=== PATIENT | female | born 1935 | race Caucasian/White ===

== ENCOUNTER → 2021-04-27 16:48 | Outpatient (CLI) | payer MEDICARE, MEDICAID, SELFPAY ==
[2021-04-27 17:54] LABS: Basophils # 0.1 K/mm3 (0-0.2); Basophils % 0.6 % (0.1-2.0); Eosinophils # 0.3 K/mm3 (0.0-0.4); Eosinophils % 2.6 % (0.1-12.0); Hematocrit 43.2 % (37.0-47.0); Hemoglobin 14.2 g/dL (12.2-16.2); Lymphocytes % 39.4 % (10-50); Mean Corpuscular HGB Conc 32.8 g/dL (31.8-35.4); Mean Corpuscular Hemoglobin 29.8 pg (27.0-31.2); Mean Corpuscular Volume 90.8 fl (81-99); Monocytes # 0.6 K/mm3 (0.1-1.0); Monocytes % 6.3 % (1.7-9.3); Neutrophils # 5.1 K/mm3 (1.8-7.8); Neutrophils % 51.1 % (37.0-80.0); Platelet Count 240 K/mm3 (142-424); Red Blood Count 4.75 M/mm3 (4.20-5.40); Red Cell Distribution Width 14.5 % (11.5-17.5)
[2021-04-27 18:07] LABS: Chloride 107 mmol/L (98-107); Sodium 147 mmol/L (136-145)
[2021-04-27 18:08] LABS: Potassium 4.7 mmoL/L (3.5-5.1)
[2021-04-27 18:10] LABS: Alanine Aminotransferase 20 U/L (12-78); Albumin Level 3.4 g/dl (3.5-5.0); Albumin/Globulin Ratio 1.2 (1.1-1.8); Alkaline Phosphatase 103 U/L (38-126); Anion Gap 10.7 mEq/L (5-15); Aspartate Amino Transferase 25 U/L (14-36); Bilirubin,Total 0.3 mg/dl (0.2-1.3); Blood Urea Nitrogen 23 mg/dl (7-17); Carbon Dioxide 34 mmol/L (22.0-30.0); Estimated Glomerular Filt Rate 47 ml/min (>60); GFR (African American) 57 ML/MIN (>60); Globulin 2.9 g/dL (1.3-3.2); Total Protein,Serum 6.3 g/dl (6.3-8.2)
[2021-04-27 18:11] LABS: Calcium 8.9 mg/dl (8.4-10.2); Glucose 96 mg/dl (74-100)
== END ==
LOC: LAB.DROPOF 16:51 → HMH.JM 04-28 12:42
PROVIDERS: Visit Provider Nurse Practitioner Family
DX: E87.0 Hyperosmolality and hypernatremia (principal)
CPT/HCPCS: 80053; 85025

== ENCOUNTER → 2021-06-22 08:09 | Outpatient (CLI) | payer MEDICARE, MEDICAID, SELFPAY ==
[2021-06-22 10:12] LABS: Basophils # 0.1 K/mm3 (0-0.2); Basophils % 0.7 % (0.1-2.0); Eosinophils # 0.2 K/mm3 (0.0-0.4); Eosinophils % 1.8 % (0.1-12.0); Hematocrit 43.2 % (37.0-47.0); Lymphocytes # 3.7 K/mm3 (0.7-4.5); Lymphocytes % 33.3 % (10-50); Mean Corpuscular HGB Conc 30.2 g/dL (31.8-35.4); Mean Corpuscular Hemoglobin 29.8 pg (27.0-31.2); Mean Corpuscular Volume 98.9 fl (81-99); Mean Platelet Volume 10.1 fl (7.4-10.4); Monocytes # 0.8 K/mm3 (0.1-1.0); Monocytes % 7.3 % (1.7-9.3); Neutrophils # 6.3 K/mm3 (1.8-7.8); Platelet Count 281 K/mm3 (142-424); Red Blood Count 4.37 M/mm3 (4.20-5.40); Red Cell Distribution Width 13.9 % (11.5-17.5)
[2021-06-22 12:30] LABS: Alanine Aminotransferase 22 U/L (12-78); Alkaline Phosphatase 95 U/L (38-126); Anion Gap 13.1 mEq/L (5-15); Aspartate Amino Transferase 35 U/L (14-36); Bilirubin,Total 0.4 mg/dl (0.2-1.3); Blood Urea Nitrogen 21 mg/dl (7-17); Calcium 8.8 mg/dl (8.4-10.2); Carbon Dioxide 30 mmol/L (22.0-30.0); Chloride 105 mmol/L (98-107); Estimated Glomerular Filt Rate 79 ml/min (>60); GFR (African American) 96 ML/MIN (>60); Globulin 2.9 g/dL (1.3-3.2); Glucose 91 mg/dl (74-100); Potassium 4.1 mmoL/L (3.5-5.1); Sodium 144 mmol/L (136-145); Total Protein,Serum 5.9 g/dl (6.3-8.2)
== END ==
PROVIDERS: Visit Provider Nurse Practitioner Family
DX: R06.02 Shortness of breath (principal)
CPT/HCPCS: 36415; 80053; 85025

== ENCOUNTER → 2021-08-24 18:29 | Outpatient (CLI) | payer MEDICARE, MEDICAID, SELFPAY ==
[2021-08-24 18:34] LABS: Microscopic, Urine URINE MICROSCOPIC (MICROSCOPIC)
[2021-08-24 18:37] LABS: Appearance,Urine CLOUDY (Clear); Bilirubin,Urine Negative (Negative); Blood, Urine Negative (Negative); Color,Urine YELLOW (Yellow); Glucose,Urine (UA) Negative (Negative); Ketones,Urine Negative (Negative); Leukocyte Esterase,Urine Negative (Negative); Nitrate,Urine Negative (Negative); Protein,Urine Negative (Negative); Specific Gravity, Urine >= 1.030 (1.005-1.030); Urobilinogen,Urine 0.2 EU/dl (0.2)
[2021-08-24 19:16] LABS: Bacteria,Urine 4+ /lpf; Squamous Epithelial Cell,Urine Occasional #/hpf (0-5)
[2021-08-24 19:20] LABS: Basophils # 0.1 K/mm3 (0-0.2); Basophils % 0.7 % (0.1-2.0); Eosinophils # 0.4 K/mm3 (0.0-0.4); Eosinophils % 3.7 % (0.1-12.0); Hematocrit 40.4 % (37.0-47.0); Hemoglobin 12.6 g/dL (12.2-16.2); Lymphocytes # 3.9 K/mm3 (0.7-4.5); Lymphocytes % 35.7 % (10-50); Mean Corpuscular HGB Conc 31.1 g/dL (31.8-35.4); Mean Corpuscular Hemoglobin 29.6 pg (27.0-31.2); Mean Corpuscular Volume 95.1 fl (81-99); Mean Platelet Volume 10.3 fl (7.4-10.4); Monocytes # 0.7 K/mm3 (0.1-1.0); Monocytes % 6.7 % (1.7-9.3); Neutrophils # 5.8 K/mm3 (1.8-7.8); Neutrophils % 53.3 % (37.0-80.0); Platelet Count 312 K/mm3 (142-424); Red Blood Count 4.25 M/mm3 (4.20-5.40); Red Cell Distribution Width 13.9 % (11.5-17.5); White Blood Count 10.8 K/mm3 (4.8-10.8)
[2021-08-24 19:44] LABS: Alanine Aminotransferase 18 U/L (12-78); Albumin Level 3.1 g/dl (3.5-5.0); Albumin/Globulin Ratio 1.1 (1.1-1.8); Alkaline Phosphatase 97 U/L (38-126); Anion Gap 8.3 mEq/L (5-15); Aspartate Amino Transferase 22 U/L (14-36); Blood Urea Nitrogen 15 mg/dl (7-17); Calcium 8.5 mg/dl (8.4-10.2); Carbon Dioxide 34 mmol/L (22.0-30.0); Chloride 106 mmol/L (98-107); Estimated Glomerular Filt Rate 68 ml/min (>60); GFR (African American) 82 ML/MIN (>60); Globulin 2.9 g/dL (1.3-3.2); Glucose 102 mg/dl (74-100); Potassium 4.3 mmoL/L (3.5-5.1); Sodium 144 mmol/L (136-145)
[2021-08-24 19:47] LABS: Bilirubin,Total 0.1 mg/dl (0.2-1.3)
== END ==
LOC: LAB.DROPOF 18:30 → HMH.JM 18:32
PROVIDERS: Visit Provider Nurse Practitioner Family
DX: I10 Essential (primary) hypertension (principal); R82.90 Unspecified abnormal findings in urine
CPT/HCPCS: 36415; 80053; 81001; 85025; 87086

== ENCOUNTER → 2021-09-18 13:07 | Outpatient (CLI) | payer MEDICARE, MEDICAID, SELFPAY ==
[2021-09-18 18:29] LABS: Basophils # 0.1 K/mm3 (0-0.2); Basophils % 0.7 % (0.1-2.0); Eosinophils # 0.1 K/mm3 (0.0-0.4); Eosinophils % 0.6 % (0.1-12.0); Hematocrit 47.9 % (37.0-47.0); Hemoglobin 14.8 g/dL (12.2-16.2); Lymphocytes # 4.7 K/mm3 (0.7-4.5); Mean Corpuscular HGB Conc 30.8 g/dL (31.8-35.4); Mean Corpuscular Hemoglobin 29.5 pg (27.0-31.2); Mean Corpuscular Volume 95.7 fl (81-99); Monocytes # 0.9 K/mm3 (0.1-1.0); Monocytes % 5.4 % (1.7-9.3); Neutrophils # 10.4 K/mm3 (1.8-7.8); Neutrophils % 64.3 % (37.0-80.0); Platelet Count 277 K/mm3 (142-424); Red Blood Count 5.01 M/mm3 (4.20-5.40); Red Cell Distribution Width 14.1 % (11.5-17.5); White Blood Count 16.2 K/mm3 (4.8-10.8)
[2021-09-18 18:30] LABS: Chloride 106 mmol/L (98-107); Potassium 4.9 mmoL/L (3.5-5.1); Sodium 144 mmol/L (136-145)
[2021-09-18 18:32] LABS: Alanine Aminotransferase 27 U/L (12-78); Alkaline Phosphatase 120 U/L (38-126); Aspartate Amino Transferase 37 U/L (14-36); Bilirubin,Total 0.8 mg/dl (0.2-1.3); Blood Urea Nitrogen 27 mg/dl (7-17); Estimated Glomerular Filt Rate 47 ml/min (>60); GFR (African American) 57 ML/MIN (>60); MANUAL DIFFERENTIAL MANUAL DIFFERENTIAL (MANUAL DIFF)
[2021-09-18 18:33] LABS: Albumin Level 3.5 g/dl (3.5-5.0); Albumin/Globulin Ratio 1.1 (1.1-1.8); Anion Gap 15.9 mEq/L (5-15); Calcium 9.1 mg/dl (8.4-10.2); Carbon Dioxide 27 mmol/L (22.0-30.0); Globulin 3.3 g/dL (1.3-3.2); Glucose 107 mg/dl (74-100); Total Protein,Serum 6.8 g/dl (6.3-8.2)
[2021-09-18 19:06] LABS: Eosinophils % 1 % (0-3); Hypochromasia 2+; Lymphocytes % 22 % (10-50); Neutrophils % 72 % (42-76); Platelet Estimate Normal; Total Cells Counted 100
== END ==
PROVIDERS: Visit Provider Nurse Practitioner Family
DX: D72.819 Decreased white blood cell count, unspecified (principal)
CPT/HCPCS: 80053; 85007; 85025

== ENCOUNTER 2022-07-09 16:16 | Emergency (ER) | payer MEDICARE, MEDICAID, SELFPAY ==
[2022-07-09 16:18] VITALS: BP 145/75; PULSE 78; RESP 18; TEMP 36.8; O2SAT 95; BMI 35.4
--- NOTE | 2022-07-09 16:18 | HMH.EDFALL ---
Discharge Plan Disposition Chief Complaint: Fall Prescriptions Prescriptions: No Action potassium chloride 10 mEq capsule, extended release 10 meq PO DAILY donepezil 10 mg tablet 10 mg PO DAILY furosemide 20 mg tablet 20 mg PO DAILY letrozole 2.5 mg tablet 2.5 mg PO DAILY ketoconazole 2 % cream 1 applic TOPICAL BID memantine 5 mg tablet 5 mg PO DAILY metoprolol tartrate 25 mg tablet 12.5 mg PO DAILY Activity Restrictions/Add. Instructions Additional Instructions/Restrictions: Follow-up with your primary care doctor in about 2 to 3 days for a wound check on your forehead. Return to the emergency department if symptoms worsen in any way. Clinical Impressions Clinical Impression: Contusion of face Instructions Patient Instructions: How to Prevent Falls Discharge ED Provider: Royer Gilmore [facility] General Chief Complaint: Fall Stated Complaint: fall Time Seen by Provider: 07/09/22 16:18 Mode of Arrival: EMS Source of Information: EMS Limitations: Altered Mental Status (The patient has a history of chronic dementia. She does not appear to know what is going on and cannot answer questions appropriately.) History of Present Illness HPI Narrative: The patient presents to the emergency department via EMS after having sustained a fall at the group home. She has a history of dementia. She is unable to tell us the history. complaint: fall Related Data Home Medications Medication Instructions Recorded Confirmed donepezil 10 mg tablet 10 mg PO DAILY dementia 07/09/22 07/09/22 furosemide 20 mg tablet 20 mg PO DAILY chf 07/09/22 07/09/22 ketoconazole 2 % topical cream 1 applic topical BID Skin condition 07/09/22 07/09/22 letrozole 2.5 mg tablet 2.5 mg PO DAILY cancer 07/09/22 07/09/22 memantine 5 mg tablet 5 mg PO DAILY dementia 07/09/22 07/09/22 metoprolol tartrate 25 mg tablet 12.5 mg PO DAILY Hypertension 07/09/22 07/09/22 potassium chloride 10 mEq 10 meq PO DAILY Supplement 07/09/22 07/09/22 capsule,extended release Allergies Allergy/AdvReac Type Severity Reaction Status Date / Time No Known Allergies Allergy Verified 07/09/22 16:27 [facility] Medical History (Updated 07/09/22 @ 17:07 by Royer Gilmore MD) Anemia Atrial fibrillation Cardiomegaly Dementia GERD (gastroesophageal reflux disease) Hyperlipidemia Hypertension Neoplasm /cancer Social History Smoking Status: Never smoker alcohol intake: never current occupational status: disabled Travel in the last 8 weeks: None ROS Obtained: Yes unobtainable due to mental condition Physical Exam General General appearance: alert Head Head exam: other (There is a hematoma with a deep abrasion to the left forehead.) Eye Eye exam: Present normal appearance, PERRL and EOMI ENT ENT exam: Present normal oropharynx, mucous membranes moist, TM's normal bilaterally, normal external ear exam and other (Dried blood left nare. No septal hematoma); Absent normal exam Neck Neck exam: Present normal inspection and full ROM; Absent tenderness or meningismus Chest Chest inspection: Present normal inspection and symmetric chest wall rise; Absent tenderness Respiratory Respiratory exam: Present normal lung sounds bilaterally; Absent respiratory distress or accessory muscle use Cardiovascular Cardiovascular exam: Present regular rate, normal rhythm and normal heart sounds Abdominal Exam Abdominal exam: Present soft and normal bowel sounds; Absent distention, tenderness, heel tap sign, Aggarwal's sign, Rovsing's sign, tenderness at McBurney's Point or mass Extremities Exam Extremities exam: Present normal inspection and full ROM; Absent edema Back Exam Back exam: Present normal inspection; Absent CVA tenderness (R) or CVA tenderness (L) Neurological Exam Neurological exam: Present alert; Absent oriented X3 Psychiatric Psychiatric exam: Present normal affect and normal mood Skin Skin exam: Present
--- NOTE | 2022-07-09 16:20 | CT_ITS ---
PROCEDURE INFORMATION: Exam: CT Head Without Contrast Exam date and time: 07/09/2022 4:33 PM Age: 87 years old Clinical indication: Injury or trauma; Blunt trauma (contusions or hematomas); Without loss of consciousness; Patient HX: Fall head injury large abrasion and hematoma on right side of forehead; Additional info: Head injury / dementia TECHNIQUE: Imaging protocol: Computed tomography of the head without contrast. Radiation optimization: All CT scans at this facility use at least one of these dose optimization techniques: automated exposure control; mA and/or kV adjustment per patient size (includes targeted exams where dose is matched to clinical indication); or iterative reconstruction. COMPARISON: No relevant prior studies available. FINDINGS: Brain: There is age-appropriate cerebral atrophy. Moderate changes of chronic small vessel ischemia within the cerebral white matter regions bilaterally. No acute infarct or hemorrhage. Cerebral ventricles: No ventriculomegaly. Paranasal sinuses: Visualized sinuses are unremarkable. No fluid levels. Mastoid air cells: Visualized mastoid air cells are well aerated. Bones/joints: Unremarkable. No acute fracture. Soft tissues: Forehead scalp soft tissue swelling. IMPRESSION: 1. No acute intracranial abnormality. 2. Forehead scalp soft tissue swelling.
--- NOTE | 2022-07-09 16:20 | CT_ITS ---
PROCEDURE INFORMATION: Exam: CT Cervical Spine Without Contrast Exam date and time: 07/09/2022 4:35 PM Age: 87 years old Clinical indication: Injury or trauma; Blunt trauma; Injury details: Fall head injury large abrasion and hematoma on right side of forehead -- PT has dementia had to repeat scan to get c7; Additional info: Fall with head injury and dementia TECHNIQUE: Imaging protocol: Computed tomography of the cervical spine without contrast. Radiation optimization: All CT scans at this facility use at least one of these dose optimization techniques: automated exposure control; mA and/or kV adjustment per patient size (includes targeted exams where dose is matched to clinical indication); or iterative reconstruction. COMPARISON: CT HEAD/BRAIN WO CON 07/09/2022 4:33 PM FINDINGS: Bones/joints: No acute fracture. Normal alignment. Mild disc space narrowing at C2-C3 and C4-C5. Moderate disc space narrowing at C5-C6 and C6-C7. Multilevel endplate osteophytes. Multilevel facet arthrosis. Moderate bilateral bony foraminal stenosis at C4-C5. Moderate left-sided bony foraminal stenosis at C5-C6. Mild bilateral bony foraminal stenosis at C6-C7. No significant disc protrusion. No severe spinal canal stenosis. Lungs: Lung apices are normal. Soft tissues: Unremarkable. IMPRESSION: No acute findings.
[2022-07-09 17:41] VITALS: BP 130/68; PULSE 95; RESP 17; TEMP 36.7; O2SAT 98
== END 2022-07-09 17:43 ==
PROVIDERS: Emergency Provider Emergency Medicine; PCP Internal Medicine Adolescent Medicine
DX: S00.83XA Contusion of other part of head, initial encounter (principal); W19.XXXA Unspecified fall, initial encounter; F03.90 Unspecified dementia, unspecified severity, without behavioral disturbance, psychotic disturbance, mood disturbance, and anxiety; Z23 Encounter for immunization; Z79.899 Other long term (current) drug therapy; D64.9 Anemia, unspecified; I48.91 Unspecified atrial fibrillation; I42.9 Cardiomyopathy, unspecified; K21.9 Gastro-esophageal reflux disease without esophagitis; E78.5 Hyperlipidemia, unspecified; I10 Essential (primary) hypertension; Z85.9 Personal history of malignant neoplasm, unspecified
CPT/HCPCS: 70450; 72125; 90471; 90715; 99284

== ENCOUNTER → 2022-12-23 14:09 | Outpatient (CLI) | payer MEDICARE, MEDICAID, SELFPAY | PROVIDERS: PCP Internal Medicine Adolescent Medicine; Visit Provider Nurse Practitioner Family | DX: R05.9 Cough, unspecified (principal); R06.2 Wheezing ==

== ENCOUNTER → 2022-12-23 17:16 | Outpatient (CLI) | payer MEDICARE, MEDICAID, SELFPAY | PROVIDERS: PCP Internal Medicine Adolescent Medicine; Visit Provider Nurse Practitioner Family | DX: R06.2 Wheezing (principal); R50.9 Fever, unspecified; J09.X2 Influenza due to identified novel influenza A virus with other respiratory manifestations | CPT/HCPCS: 87275; 87276 ==

== ENCOUNTER 2023-06-26 02:24 | Emergency (ER) | payer MEDICARE, MEDICAID, SELFPAY ==
[2023-06-26 02:19] VITALS: BP 159/71; PULSE 65; O2SAT 95
--- NOTE | 2023-06-26 02:21 | CT_ITS ---
PROCEDURE INFORMATION: Exam: CT Cervical Spine Without Contrast Exam date and time: 06/26/2023 3:09 AM Age: 88 years old Clinical indication: Injury or trauma; Fall; Additional info: Fall, baseline nonverbal TECHNIQUE: Imaging protocol: Computed tomography of the cervical spine without contrast. Radiation optimization: All CT scans at this facility use at least one of these dose optimization techniques: automated exposure control; mA and/or kV adjustment per patient size (includes targeted exams where dose is matched to clinical indication); or iterative reconstruction. REPORTING DATA: Count of CT and Cardiac NM exams in prior 12 months: This patient has received 2 known CTs and 0 known cardiac nuclear medicine studies in the 12 months prior to the current study. COMPARISON: CT CERVICAL SPINE WO CON 07/09/2022 4:35 PM FINDINGS: Bones/joints: There is no evidence for acute cervical fracture or subluxation. The bones are somewhat osteopenic. There is straightening of the cervical lordosis which may be due to patient positioning or muscle spasm. Multilevel cervical spondylosis is noted with disc ridging, facet arthropathy and uncovertebral spurring most prominently at C6-C7. Lungs: Lung apices are normal. Thyroid: There is nodular enlargement of the right thyroid lobe. Please correlate with dedicated thyroid ultrasound. Soft tissues: Polypoid mucosal thickening is incidentally noted in the sphenoid sinuses. No soft tissue mass otherwise identified. IMPRESSION: No evidence for acute cervical fracture.
--- NOTE | 2023-06-26 02:21 | XR_ITS ---
PROCEDURE INFORMATION: Exam: XR Pelvis Exam date and time: 06/26/2023 3:13 AM Age: 88 years old Clinical indication: Injury or trauma; Fall; Additional info: Fall out of bed TECHNIQUE: Imaging protocol: Radiologic exam of the pelvis. Views: 1 or 2 view. COMPARISON: No relevant prior studies available. FINDINGS: Bones/joints: Subjective bony demineralization. No displaced fractures are evident. There is limited sensitivity for nondisplaced fractures. Sacrum is not well seen. Lower lumbar degenerative disc and facet disease noted. Soft tissues: Unremarkable. IMPRESSION: No acute displaced fracture. There is limited sensitivity for nondisplaced fractures in the setting of demineralization. If clinical scenario is unresolved, consider CT or MR for further evaluation.
--- NOTE | 2023-06-26 02:21 | CT_ITS ---
PROCEDURE INFORMATION: Exam: CTA Abdomen and Pelvis With Contrast Exam date and time: 06/26/2023 3:16 AM Age: 88 years old Clinical indication: Injury or trauma; Fall; Additional info: Fall baseline nonverbal TECHNIQUE: Imaging protocol: Computed tomographic angiography of the abdomen and pelvis with contrast. Exam focused on the arteries. 3D rendering (Not supervised by radiologist): MIP and/or 3D reconstructed images were created by the technologist. Radiation optimization: All CT scans at this facility use at least one of these dose optimization techniques: automated exposure control; mA and/or kV adjustment per patient size (includes targeted exams where dose is matched to clinical indication); or iterative reconstruction. Contrast material: ISOVUE; Contrast volume: 100 ml; Contrast route: INTRAVENOUS (IV); REPORTING DATA: Count of CT and Cardiac NM exams in prior 12 months: This patient has received 2 known CTs and 0 known cardiac nuclear medicine studies in the 12 months prior to the current study. COMPARISON: CR XR PELVIS 1-2V 06/26/2023 3:13 AM FINDINGS: Aorta: Fusiform infrarenal abdominal aorta measures 3.6 cm maximal dimension. Celiac trunk and mesenteric arteries: No occlusion or significant stenosis. Renal arteries: No occlusion or significant stenosis. Right iliac arteries: No occlusion or significant stenosis. Left iliac arteries: No occlusion or significant stenosis. Liver: No mass. Gallbladder and bile ducts: Prior cholecystectomy. No biliary tree dilation or high-density retained stones appreciated. Pancreas: Unremarkable. No mass. No ductal dilation. Spleen: Unremarkable. No splenomegaly. Adrenal glands: Unremarkable. No mass. Kidneys and ureters: Kidneys enhance symmetrically and demonstrate no evidence of mass, calculus, obstruction, or inflammation. Mild renal atrophy. Stomach and bowel: Decompressed stomach. Normal caliber small bowel. Large volume fecal debris in the rectosigmoid. Distal colonic diverticulosis without evidence of acute diverticulitis. Appendix: No evidence of appendicitis. Intraperitoneal space: Unremarkable. No free air. No significant fluid collection. Lymph nodes: Unremarkable. No enlarged lymph nodes. Urinary bladder: Unremarkable. No mass. Reproductive: Unremarkable as visualized. Bones/joints: There is no acute fracture or destructive lesion. Subjective bony demineralization. Diffuse fatty atrophy of skeletal muscle. No perianeurysmal fibrosis or hemorrhage. Soft tissues: Unremarkable. IMPRESSION: 1. No acute traumatic change in the abdomen or pelvis. 2. Infrarenal abdominal aortic aneurysm measures 3.6 cm AP dimension. No perianeurysmal fibrosis or hemorrhage.
--- NOTE | 2023-06-26 02:21 | CT_ITS ---
PROCEDURE INFORMATION: Exam: CT Head Without Contrast Exam date and time: 06/26/2023 3:07 AM Age: 88 years old Clinical indication: Injury or trauma; Fall; Additional info: Fall, baseline nonverbal TECHNIQUE: Imaging protocol: Computed tomography of the head without contrast. Radiation optimization: All CT scans at this facility use at least one of these dose optimization techniques: automated exposure control; mA and/or kV adjustment per patient size (includes targeted exams where dose is matched to clinical indication); or iterative reconstruction. REPORTING DATA: Count of CT and Cardiac NM exams in prior 12 months: This patient has received 2 known CTs and 0 known cardiac nuclear medicine studies in the 12 months prior to the current study. COMPARISON: CT HEAD/BRAIN WO CON 07/09/2022 4:33 PM FINDINGS: Brain: There is age-appropriate advanced frontotemporal volume loss. There is no mass effect, midline shift, acute hemorrhage, extra-axial fluid collection or acute lobar infarct. Moderate hemispheric white matter hypodensity likely reflects microvascular ischemic change. Chronic ganglial capsular lacunar infarcts are noted. Cerebral ventricles: No ventriculomegaly. Paranasal sinuses: Polypoid mucosal thickening is noted within the sphenoid sinuses. Mastoid air cells: Visualized mastoid air cells are well aerated. Orbital cavities: The patient is post bilateral cataract surgery. Bones/joints: Unremarkable. No acute fracture. Soft tissues: Unremarkable. IMPRESSION: No acute intracranial process.
--- NOTE | 2023-06-26 02:21 | CT_ITS ---
PROCEDURE INFORMATION: Exam: CTA Chest With Contrast Exam date and time: 06/26/2023 3:16 AM Age: 88 years old Clinical indication: Injury or trauma; Fall; Additional info: Fall baseline nonverbal TECHNIQUE: Imaging protocol: Computed tomographic angiography of the chest with contrast. Exam focused on the arteries. 3D rendering (Not supervised by radiologist): MIP and/or 3D reconstructed images were created by the technologist. Radiation optimization: All CT scans at this facility use at least one of these dose optimization techniques: automated exposure control; mA and/or kV adjustment per patient size (includes targeted exams where dose is matched to clinical indication); or iterative reconstruction. Contrast material: ISOVUE; Contrast volume: 100 ml; Contrast route: INTRAVENOUS (IV); REPORTING DATA: Count of CT and Cardiac NM exams in prior 12 months: This patient has received 2 known CTs and 0 known cardiac nuclear medicine studies in the 12 months prior to the current study. COMPARISON: CT CERVICAL SPINE WO CON 06/26/2023 3:09 AM FINDINGS: Pulmonary arteries: Normal. No pulmonary emboli. Great vessels off aortic arch: Great vessel origins are patent. Aorta: Heterogeneous plaque noted in the normal caliber thoracic aorta. Thyroid: 12 mm right thyroid nodule. Several smaller nodules are noted in the thyroid. Lungs: Centrilobular emphysema. Mild tracheobronchomalacia. Mild subpleural scarring. Pleural spaces: Unremarkable. No pneumothorax. No pleural effusion. Heart: Heart size is normal. Coronary arteries: Coronary artery stent material is noted. Lymph nodes: Unremarkable. No enlarged lymph nodes. Bones/joints: Subjective bony demineralization. No acute fracture. Soft tissues: Unremarkable. IMPRESSION: No acute traumatic abnormality in the chest. COMMENTS: Consistent with the [employer]'s Incidental Findings Committee white paper (J Am Ahmet Radiol 2015): In patients aged 35 years and older with an incidental thyroid nodule equal to or greater than 1.[address], MRI or extrathyroidal US, further evaluation with dedicated thyroid US is recommended for patients with normal life expectancy and without comorbidities. For smaller nodules without suspicious features, no further evaluation or follow up is recommended.
[2023-06-26 02:24] VITALS: BP 159/71; PULSE 75; RESP 20; TEMP 36.5; O2SAT 95; BMI 37.4
--- NOTE | 2023-06-26 02:24 | HMH.EDGENADL ---
Discharge Plan Disposition Patient Disposition: Xfer SNF Condition: Good Prescriptions Prescriptions: New albuterol sulfate 90 mcg/actuation HFA aerosol inhaler 2 inh inhalation Q6H PRN (Reason: shortness of breath or wheezing) Qty: 6.7 0RF No Action potassium chloride 10 mEq capsule, extended release 10 meq PO DAILY donepezil 10 mg tablet 10 mg PO DAILY furosemide 20 mg tablet 20 mg PO DAILY letrozole 2.5 mg tablet 2.5 mg PO DAILY ketoconazole 2 % cream 1 applic TOPICAL BID memantine 5 mg tablet 5 mg PO DAILY metoprolol tartrate 25 mg tablet 12.5 mg PO DAILY Referrals Follow up/Referrals: Petey Maravilla MD [Primary Care Provider] - See instructions Activity Restrictions/Add. Instructions Additional Instructions/Restrictions: Wilma was evaluated in the emergency department after fall. She does not have any injuries identified on CT imaging. Labs were reassuring. She does have incidental findings of thyroid nodule and intra-abdominal aortic aneurysm without hemorrhage or signs of injury. These incidental findings should be followed up by her primary care physician. She should be evaluated by them again in the next 2-3 days. She has been provided erythromycin ointment that needs to be applied in both eyes 4 times daily for the next 7 days. She has also been prescribed albuterol inhaler for use if needed for wheezing. Please monitor for signs of altered mental status or other decompensation. She should return to the emergency department with any new, worsening, or concerning symptoms. Clinical Impressions Clinical Impression: Fall from bed, initial encounter, Bilateral wheezing Contusion of face Qualifiers: Encounter type: initial encounter Qualified Code(s): S00.83XA - Contusion of other part of head, initial encounter Conjunctivitis Qualifiers: Conjunctivitis type: unspecified Laterality: bilateral Qualified Code(s): H10.9 - Unspecified conjunctivitis Discharge ED Provider: Radha Mcclendon General Adult HPI General Chief complaint: Fall Stated complaint: fall Time Seen by Provider: 06/26/23 02:34 History of Present Illness HPI narrative: This 88-year-old female with a history of dementia presents from assisted after fall out of bed. Patient is reportedly nonverbal at baseline. According to EMS, staff at the facility state patient was left sitting up in bed and when she was checked on 30 minutes later she was found on the floor. Staff at the facility reported that patient had a tiny bruise above her right eye prior to the fall, but afterwards it seemed larger. Patient does not take any blood thinners. Patient is pleasantly demented but nonverbal at baseline so she does not provide any history. When asked if she has pain she does not point anywhere. Related Data Home Medications Medication Instructions Recorded Confirmed donepezil 10 mg tablet 10 mg PO DAILY dementia 07/09/22 07/09/22 furosemide 20 mg tablet 20 mg PO DAILY chf 07/09/22 07/09/22 ketoconazole 2 % topical cream 1 applic topical BID Skin condition 07/09/22 07/09/22 letrozole 2.5 mg tablet 2.5 mg PO DAILY cancer 07/09/22 07/09/22 memantine 5 mg tablet 5 mg PO DAILY dementia 07/09/22 07/09/22 metoprolol tartrate 25 mg tablet 12.5 mg PO DAILY Hypertension 07/09/22 07/09/22 potassium chloride 10 mEq 10 meq PO DAILY Supplement 07/09/22 07/09/22 capsule,extended release Previous Rx's Medication Instructions Recorded albuterol sulfate 90 mcg/actuation 2 inh inhalation Q6H PRN shortness 06/26/23 aerosol inhaler of breath or wheezing #6.7 grams Allergies Allergy/AdvReac Type Severity Reaction Status Date / Time No Known Allergies Allergy Verified 07/09/22 16:27 [facility] Disclaimer: The information contained in this section may have been updated after the patient was seen, as this information can be updated by other users. Medical History (Updated 06/26/23 @ 04:2
--- NOTE | 2023-06-26 02:33 | CT_ITS ---
PROCEDURE INFORMATION: Exam: CT Maxillofacial Without Contrast Exam date and time: 06/26/2023 3:12 AM Age: 88 years old Clinical indication: Injury or trauma; Fall; Additional info: Fall, bruise R eyebrow, PT nonverbal TECHNIQUE: Imaging protocol: Computed tomography of the face without contrast. Radiation optimization: All CT scans at this facility use at least one of these dose optimization techniques: automated exposure control; mA and/or kV adjustment per patient size (includes targeted exams where dose is matched to clinical indication); or iterative reconstruction. REPORTING DATA: Count of CT and Cardiac NM exams in prior 12 months: This patient has received 2 known CTs and 0 known cardiac nuclear medicine studies in the 12 months prior to the current study. COMPARISON: CT HEAD/BRAIN WO CON 06/26/2023 3:07 AM FINDINGS: Orbital cavities: The patient is post bilateral cataract surgery. Bones/joints: There is no evidence for acute facial fracture. Paranasal sinuses: Polypoid mucosal thickening is noted within the sphenoid sinuses. Soft tissues: Unremarkable. IMPRESSION: No evidence for acute facial fracture.
[2023-06-26 02:35] LABS: Microscopic, Urine URINE MICROSCOPIC (MICROSCOPIC)
[2023-06-26 02:36] LABS: Appearance,Urine CLEAR (Clear); Bilirubin,Urine Negative (Negative); Blood, Urine Negative (Negative); Color,Urine YELLOW (Yellow); Glucose,Urine (UA) Negative (Negative); Ketones,Urine Negative (Negative); Leukocyte Esterase,Urine Negative (Negative); Nitrate,Urine Negative (Negative); Protein,Urine Negative (Negative); Specific Gravity, Urine >= 1.030 (1.005-1.030)
[2023-06-26 02:37] LABS: Basophils # 0.1 K/mm3 (0-0.2); Basophils % 0.5 % (0.1-2.0); Eosinophils # 0.5 K/mm3 (0.0-0.4); Hematocrit 49.6 % (37.0-47.0); Hemoglobin 14.6 g/dL (12.2-16.2); Lymphocytes % 33.3 % (10-50); Mean Corpuscular HGB Conc 29.4 g/dL (31.8-35.4); Mean Corpuscular Hemoglobin 28.4 pg (27.0-31.2); Mean Corpuscular Volume 96.8 fl (81-99); Mean Platelet Volume 8.5 fl (7.4-10.4); Monocytes # 0.9 K/mm3 (0.1-1.0); Monocytes % 7.3 % (1.7-9.3); Neutrophils # 6.6 K/mm3 (1.8-7.8); Neutrophils % 54.9 % (37.0-80.0); Platelet Count 268 K/mm3 (142-424); Red Blood Count 5.12 M/mm3 (4.20-5.40); Red Cell Distribution Width 13.8 % (11.5-17.5)
[2023-06-26 02:41] LABS: Chloride 102 mmol/L (98-107); Potassium 4.3 mmoL/L (3.5-5.1); Sodium 142 mmol/L (136-145)
[2023-06-26 02:43] LABS: Alanine Aminotransferase 24 U/L (12-78); Alkaline Phosphatase 116 U/L (38-126); Anion Gap 8.3 mEq/L (5-15); Aspartate Amino Transferase 25 U/L (14-36); Bilirubin,Total 0.6 mg/dl (0.2-1.3); Blood Urea Nitrogen 20 mg/dl (7-17); Carbon Dioxide 36 mmol/L (22.0-30.0); Creatinine Clearance Estimated 65 mL/min (50-200); Estimated Glomerular Filt Rate 68 ml/min (>60); GFR (African American) 82 ML/MIN (>60)
[2023-06-26 02:44] LABS: Albumin Level 3.4 g/dl (3.5-5.0); Albumin/Globulin Ratio 0.9 (1.1-1.8); Calcium 9.1 mg/dl (8.4-10.2); Globulin 3.9 g/dL (1.3-3.2); Glucose 114 mg/dl (74-100); Total Protein,Serum 7.3 g/dl (6.3-8.2)
[2023-06-26 02:45] LABS: Creatine Kinase < 20 U/L (30-135); INR 0.99 (0.9-1.1); Prothrombin Time 10.7 seconds (10.1-12.5)
[2023-06-26 02:47] LABS: Bacteria,Urine 1+ /lpf; Mucus,Urine 1+ /lpf
[2023-06-26 03:44] VITALS: PULSE 87
[2023-06-26 03:45] VITALS: PULSE 87
--- NOTE | 2023-06-26 04:29 | PC.NURSE ---
EMS contacted for transport back
[2023-06-26 04:35] VITALS: BP 148/75; PULSE 61; RESP 20; TEMP 36.5; O2SAT 95
== END 2023-06-26 04:43 ==
PROVIDERS: Emergency Provider Emergency Medicine; PCP Internal Medicine Adolescent Medicine
DX: S00.83XA Contusion of other part of head, initial encounter (principal); H10.9 Unspecified conjunctivitis; F03.90 Unspecified dementia, unspecified severity, without behavioral disturbance, psychotic disturbance, mood disturbance, and anxiety; W06.XXXA Fall from bed, initial encounter; I48.91 Unspecified atrial fibrillation; K21.9 Gastro-esophageal reflux disease without esophagitis; I10 Essential (primary) hypertension; E78.5 Hyperlipidemia, unspecified
CPT/HCPCS: 70450; 70486; 71275; 72125; 72170; 74174; 80053; 81001; 82550; 85025; 85610; 99285; Q9967

== ENCOUNTER 2023-09-28 19:36 | Emergency (ER) | payer MEDICARE, MEDICAID, SELFPAY ==
[2023-09-28] VITALS (10 sets, daily range): BP systolic 130–158; BP diastolic 35–106; PULSE 79–98; RESP 18–24; TEMP 36.8; O2SAT 95–100; BMI 39.6
--- NOTE | 2023-09-28 20:58 | XR_ITS ---
PROCEDURE INFORMATION: Exam: XR Pelvis Exam date and time: 09/28/2023 9:15 PM Age: 88 years old Clinical indication: Injury or trauma; Fall; Blunt trauma (contusions or hematomas); Does not apply; Pelvic region TECHNIQUE: Imaging protocol: Radiologic exam of the pelvis. Views: 1 or 2 view. COMPARISON: CT ANGIO ABDOMEN PELVIS 06/26/2023 3:16 AM FINDINGS: Bones/joints: There are partially visualized degenerative changes of the sacroiliac joints and lumbar spine as well as some degenerative disease of the pubic symphysis. There is mild osteoarthritis of the hips with joint space narrowing, productive changes, and subchondral sclerosis. Soft tissues: Unremarkable. Gastrointestinal tract: There is moderate stool in the rectal vault. Other findings: The examination is limited by under penetration. There is a density projecting over the mid pelvis of unclear etiology. IMPRESSION: Degenerative change without discrete gross osseous anomaly noted. The examination is limited by under penetration.
--- NOTE | 2023-09-28 20:58 | CT_ITS ---
PROCEDURE INFORMATION: Exam: CT Head Without Contrast Exam date and time: 09/28/2023 9:11 PM Age: 88 years old Clinical indication: Injury or trauma; Fall TECHNIQUE: Imaging protocol: Computed tomography of the head without contrast. Total images: 275 Radiation optimization: All CT scans at this facility use at least one of these dose optimization techniques: automated exposure control; mA and/or kV adjustment per patient size (includes targeted exams where dose is matched to clinical indication); or iterative reconstruction. REPORTING DATA: Count of CT and Cardiac NM exams in prior 12 months: This patient has received 5 known CTs and 0 known cardiac nuclear medicine studies in the 12 months prior to the current study. COMPARISON: CT HEAD/BRAIN WO CON 06/26/2023 3:07 AM FINDINGS: Brain: Moderate cortical and cerebellar atrophy. No acute intracranial hemorrhage, midline shift, or mass. Moderate confluent periventricular and subcortical white matter hypodensity compatible with remote small vessel ischemic change. Ruiz-white interface is maintained. Basilar cisterns are preserved. Artifact versus remote deep white matter ischemic changes within the pepe. Remote lacunar infarct left caudate. Remote deep white matter ischemic changes bilateral internal capsules. Cerebral ventricles: Mild ventriculomegaly compatible degree of central atrophy. Paranasal sinuses: Visualized sinuses are unremarkable. No fluid levels. Mastoid air cells: Visualized mastoid air cells are well aerated. Orbital cavities: Status post bilateral orbital lens replacement. Dental: Significant dental artifact. Bones/joints: Osteopenia. No skull fracture. Soft tissues: Unremarkable. Vasculature: Moderate calcifications bilateral intracranial internal carotid arteries. Other findings: Mild limitations imposed by patient motion. IMPRESSION: 1. No acute intracranial process. 2. Stable chronic findings. 3. No significant change from June 26, 2023.
--- NOTE | 2023-09-28 20:58 | CT_ITS ---
PROCEDURE INFORMATION: Exam: CT Cervical Spine Without Contrast Exam date and time: 09/28/2023 9:11 PM Age: 88 years old Clinical indication: Injury or trauma; Fall TECHNIQUE: Imaging protocol: Computed tomography of the cervical spine without contrast. Total images: 270 Radiation optimization: All CT scans at this facility use at least one of these dose optimization techniques: automated exposure control; mA and/or kV adjustment per patient size (includes targeted exams where dose is matched to clinical indication); or iterative reconstruction. REPORTING DATA: Count of CT and Cardiac NM exams in prior 12 months: This patient has received 5 known CTs and 0 known cardiac nuclear medicine studies in the 12 months prior to the current study. COMPARISON: CT CERVICAL SPINE WO CON 06/26/2023 3:09 AM FINDINGS: Bones/joints: Osteopenia. Straightened lordosis with minor broad-based dextrocurvature. Vertebral body height and alignment is maintained. The base of the dens and C1 and C2 articulations are preserved with mild degenerative arthropathy. The cervicooccipital junction is intact. Facet joints are appropriately aligned with moderate hypertrophic degenerate facet joint spondylosis. Posterior elements are intact. Moderate multilevel degenerative disc disease greatest at C4-C5, C5-C6, and C6-C7. Posterior projecting disc osteophyte complex at C4 through C7 results in mild acquired spinal canal stenosis and bilateral neural foraminal encroachment at these levels. No concerning bone lesions. Prevertebral and retropharyngeal spaces: No prevertebral soft tissue swelling. Lungs: Lung apices are clear with mild centrilobular emphysema. Thyroid: Mildly enlarged multinodular thyroid gland. Recommend follow-up nonemergent thyroid ultrasound if not previously assessed. Vasculature: Moderate calcifications bilateral carotid artery bifurcations. Soft tissues: Unremarkable soft tissues of the neck. IMPRESSION: 1. No acute cervical fracture or traumatic subluxation. 2. Straightened lordosis with minor dextrocurvature from position or muscle spasm/torticollis. 3. Moderate degenerative disc disease C4 through C7. 4. Enlarged multinodular thyroid gland. Recommend follow-up nonemergent thyroid ultrasound if not previously assessed. 5. Moderate calcifications bilateral carotid artery bifurcations.
--- NOTE | 2023-09-28 20:58 | XR_ITS ---
PROCEDURE INFORMATION: Exam: XR Chest Exam date and time: 09/28/2023 9:14 PM Age: 88 years old Clinical indication: Injury or trauma; Fall; Blunt trauma (contusions or hematomas) TECHNIQUE: Imaging protocol: Radiologic exam of the chest. Views: 1 view. COMPARISON: CT ANGIO CHEST 06/26/2023 3:16 AM FINDINGS: Lungs: There is some parenchymal opacity in the left lower lobe which could reflect contusion in the appropriate clinical setting. Pleural spaces: No evidence of pleural effusion, pneumothorax, or pleural thickening in the visualized pleural spaces. Heart/Mediastinum: No evidence of mediastinal widening or cardiac silhouette enlargement; the mediastinum and heart appear within normal limits for contour and size. Vasculature: There are calcifications of the aortic arch. Bones/joints: No evidence of acute osseous abnormalities within the visualized portions of the thoracic spine and ribs. Osseous structures appear appropriate for patient age. IMPRESSION: There is some parenchymal opacity in the left lower lobe which could reflect contusion in the appropriate clinical setting.
--- NOTE | 2023-09-28 22:57 | PC.NURSE ---
spoke to Itzel Ramos @ [facility] notified EMS that pt is ready for transported once [place] truck [place]
--- NOTE | 2023-09-28 23:43 | HMH.EDGENADL ---
Discharge Plan Disposition Patient Disposition: Xfer SNF Condition: Good Prescriptions Prescriptions: No Action potassium chloride 10 mEq capsule, extended release 10 meq PO DAILY donepezil 10 mg tablet 10 mg PO DAILY furosemide 20 mg tablet 20 mg PO DAILY letrozole 2.5 mg tablet 2.5 mg PO DAILY ketoconazole 2 % cream 1 applic TOPICAL BID memantine 5 mg tablet 5 mg PO DAILY metoprolol tartrate 25 mg tablet 12.5 mg PO DAILY albuterol sulfate 90 mcg/actuation HFA aerosol inhaler 2 inh inhalation Q6H PRN (Reason: shortness of breath or wheezing) Qty: 6.7 0RF Referrals Follow up/Referrals: Provider,Referral, MD [Primary Care Provider] - See instructions Activity Restrictions/Add. Instructions Additional Instructions/Restrictions: The sutures are absorbable and will dissolve on their own. They do not require removal. Keep the wound clean and dry. Do not submerge under any water. Monitor for any signs of infection, such as redness, warmth, or pus draining from the wound. Expect bruising and swelling to increase given the degree of injury. Return to the emergency department for any new or worsening symptoms. Clinical Impressions Clinical Impression: Fall, Chin laceration Instructions Patient Instructions: DI for Laceration Repair, How to Prevent Falls Discharge ED Provider: Lupe Barton General Adult HPI General Chief complaint: Fall Stated complaint: fall w/lac Time Seen by Provider: 09/28/23 20:47 Mode of Arrival: EMS Source of Information: EMS Limitations: Altered Mental Status Description of Symptoms (Recalled from ER Triage Doc. by RN): Patient fell from bed while aid was changing her at [facility]. Patient has a lac with slight bleeding to left chin, abrasions to abdomen, and both knees. History of Present Illness HPI narrative: This patient is an 88-year-old female with a history of anemia, atrial fibrillation, dementia who is nonverbal, GERD, hypertension, and hyperlipidemia presenting to the emergency department for evaluation with concern for fall. At the nursing facility, an aide was changing the patient when the patient had rolled out of bed. She suffered a laceration to her chin. No loss of consciousness noted. She does not take anticoagulation. No other concerns noted at this time. History is difficult to obtain from patient given that she is nonverbal, she but she appears to be at her baseline. She is up-to-date on tetanus. Related Data Home Medications Medication Instructions Recorded Confirmed donepezil 10 mg tablet 10 mg PO DAILY dementia 07/09/22 07/09/22 furosemide 20 mg tablet 20 mg PO DAILY chf 07/09/22 07/09/22 ketoconazole 2 % topical cream 1 applic topical BID Skin condition 07/09/22 07/09/22 letrozole 2.5 mg tablet 2.5 mg PO DAILY cancer 07/09/22 07/09/22 memantine 5 mg tablet 5 mg PO DAILY dementia 07/09/22 07/09/22 metoprolol tartrate 25 mg tablet 12.5 mg PO DAILY Hypertension 07/09/22 07/09/22 potassium chloride 10 mEq 10 meq PO DAILY Supplement 07/09/22 07/09/22 capsule,extended release Previous Rx's Medication Instructions Recorded albuterol sulfate 90 mcg/actuation 2 inh inhalation Q6H PRN shortness 06/26/23 aerosol inhaler of breath or wheezing #6.7 grams Allergies Allergy/AdvReac Type Severity Reaction Status Date / Time No Known Allergies Allergy Verified 07/09/22 16:27 [facility] Disclaimer: The information contained in this section may have been updated after the patient was seen, as this information can be updated by other users. Medical History Anemia Atrial fibrillation Cardiomegaly Dementia GERD (gastroesophageal reflux disease) Hyperlipidemia Hypertension Neoplasm /cancer Social History Smoking Status: Unknown if ever smoked alcohol intake: never current occupational statu
[2023-09-29] VITALS: BP 130/100; PULSE 94; RESP 20; O2SAT 95
[2023-09-29 00:30] VITALS: BP 141/64; PULSE 96; RESP 22; O2SAT 96
== END 2023-09-29 04:01 ==
PROVIDERS: Emergency Provider Emergency Medicine
DX: S01.81XA Laceration without foreign body of other part of head, initial encounter (principal); S30.811A Abrasion of abdominal wall, initial encounter; S80.211A Abrasion, right knee, initial encounter; S80.212A Abrasion, left knee, initial encounter; K21.9 Gastro-esophageal reflux disease without esophagitis; I10 Essential (primary) hypertension; E78.5 Hyperlipidemia, unspecified; I48.0 Paroxysmal atrial fibrillation; F03.90 Unspecified dementia, unspecified severity, without behavioral disturbance, psychotic disturbance, mood disturbance, and anxiety; W06.XXXA Fall from bed, initial encounter; R47.89 Other speech disturbances; Z23 Encounter for immunization
CPT/HCPCS: 12013; 70450; 71045; 72125; 72170; 90471; 99285

== ENCOUNTER 2023-10-02 12:24 | Inpatient (IN) | payer MEDICARE, MEDICAID, SELFPAY ==
[2023-10-02] VITALS (7 sets, daily range): BP systolic 108–128; BP diastolic 49–71; PULSE 60–84; RESP 16–20; TEMP 36.3–36.8; O2SAT 93–99; BMI 36.8
--- NOTE | 2023-10-02 12:29 | CT_ITS ---
PROCEDURE INFORMATION: Exam: CTA Head With Contrast, Arteriography Exam date and time: 10/02/2023 1:11 PM Age: 88 years old Clinical indication: Cognitive deficit; Altered mental status; Additional info: AMS TECHNIQUE: Imaging protocol: Computed tomographic angiography of the head with contrast. Exam focused on the arteries. 3D rendering (Not supervised by radiologist): MIP and/or 3D reconstructed images were created by the technologist. Radiation optimization: All CT scans at this facility use at least one of these dose optimization techniques: automated exposure control; mA and/or kV adjustment per patient size (includes targeted exams where dose is matched to clinical indication); or iterative reconstruction. Contrast material: ISOVUE 370; Contrast volume: 100 ml; Contrast route: INTRAVENOUS (IV); REPORTING DATA: Count of CT and Cardiac NM exams in prior 12 months: This patient has received 7 known CTs and 0 known cardiac nuclear medicine studies in the 12 months prior to the current study. COMPARISON: CT HEAD/BRAIN WO CON 10/02/2023 1:01 PM FINDINGS: Limitations: Assessment is limited due to inadequate enhancement of the vascular structures. ANTERIOR CIRCULATION: Right internal carotid artery: Intracranial segment is patent with no significant stenosis. No aneurysm. Right middle cerebral artery: No occlusion or significant stenosis. No aneurysm. Right anterior cerebral artery: No occlusion or significant stenosis. No aneurysm. Left internal carotid artery: Intracranial segment is patent with no significant stenosis. No aneurysm. Left middle cerebral artery: Sylvian branch of the left MCA is diminished in caliber and enhancement compared to the right sylvian branch likely secondary to underlying stenosis that is difficult to identify. Left anterior cerebral artery: No occlusion or significant stenosis. No aneurysm. POSTERIOR CIRCULATION: Right vertebral artery: No occlusion or significant stenosis. No aneurysm. Left vertebral artery: No occlusion or significant stenosis. No aneurysm. Basilar artery: No occlusion or significant stenosis. No aneurysm. Right posterior cerebral artery: No occlusion or significant stenosis. No aneurysm. Left posterior cerebral artery: No occlusion or significant stenosis. No aneurysm. Brain: No intracranial hemorrhage or mass effect. Cerebral ventricles: No ventriculomegaly. Bones/joints: Unremarkable. No acute fracture. Soft tissues: Unremarkable. IMPRESSION: 1. Technically limited study due to inadequate enhancement. 2. Diminished flow within the sylvian branch left MCA presumed secondary to underlying stenosis which is difficult to delineate. No large vessel occlusion detected.
--- NOTE | 2023-10-02 12:29 | CT_ITS ---
PROCEDURE INFORMATION: Exam: CTA Chest With Contrast Exam date and time: 10/02/2023 1:05 PM Age: 88 years old Clinical indication: Shortness of breath; Additional info: SOA, hypotension TECHNIQUE: Imaging protocol: Computed tomographic angiography of the chest with contrast. Exam focused on the arteries. 3D rendering (Not supervised by radiologist): MIP and/or 3D reconstructed images were created by the technologist. Radiation optimization: All CT scans at this facility use at least one of these dose optimization techniques: automated exposure control; mA and/or kV adjustment per patient size (includes targeted exams where dose is matched to clinical indication); or iterative reconstruction. Contrast material: ISOVUE 370; Contrast volume: 75 ml; Contrast route: INTRAVENOUS (IV); REPORTING DATA: Count of CT and Cardiac NM exams in prior 12 months: This patient has received 7 known CTs and 0 known cardiac nuclear medicine studies in the 12 months prior to the current study. COMPARISON: CT ANGIO CHEST 06/26/2023 3:16 AM FINDINGS: Pulmonary arteries: Non occluding filling defects are present in the medial basal segment pulmonary artery of the right lower lobe. Aorta: No aortic aneurysm. No aortic dissection. 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 No distinct thyroid nodules. Lungs: Mild perihilar heterogeneous attenuation and reticulations. Posterior dependent atelectasis. Pleural spaces: Small bilateral pleural effusions. Heart: No cardiomegaly. No inversion of the interventricular septum. Heart RV/LV ratio: 0.9 Coronary arteries: LAD coronary artery stent. Lymph nodes: Calcified lymph nodes in both donna. Bones/joints: No acute fracture. Soft tissues: Scarring and surgical clips in the upper outer quadrant right breast are unchanged. IMPRESSION: 1. Acute pulmonary emboli in the medial basal segment right lower lobe. Thrombus burden is light. No evidence of right heart strain. 2. Heterogeneous attenuation and reticulations in both perihilar lungs could represent pulmonary edema or pneumonia. 3. Small bilateral pleural effusions. 4. 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
--- NOTE | 2023-10-02 12:29 | CT_ITS ---
PROCEDURE INFORMATION: Exam: CT Head Without Contrast Exam date and time: 10/02/2023 1:01 PM Age: 88 years old Clinical indication: Altered mental status/memory loss; Confusion or disorientation; Additional info: AMS TECHNIQUE: Imaging protocol: Computed tomography of the head without contrast. Radiation optimization: All CT scans at this facility use at least one of these dose optimization techniques: automated exposure control; mA and/or kV adjustment per patient size (includes targeted exams where dose is matched to clinical indication); or iterative reconstruction. REPORTING DATA: Count of CT and Cardiac NM exams in prior 12 months: This patient has received 7 known CTs and 0 known cardiac nuclear medicine studies in the 12 months prior to the current study. COMPARISON: CT HEAD/BRAIN WO CON 09/28/2023 9:11 PM FINDINGS: Brain: There is no evidence of intracranial hemorrhage. There are no areas of mass effect, edema or midline shift. There are diffuse indistinct areas of decreased attenuation involving the periventricular white matter likely secondary to chronic white matter microvascular changes. There is age-related cerebral volume loss responsible for prominence of the cortical sulci. Cerebral ventricles: There is mild proportionate ventricular dilatation believed secondary to age related cerebral volume loss. Paranasal sinuses: Visualized sinuses are unremarkable. No fluid levels. Mastoid air cells: Visualized mastoid air cells are well aerated. Bones/joints: Unremarkable. No acute fracture. Soft tissues: Unremarkable. IMPRESSION: No acute intracranial abnormalities.
--- NOTE | 2023-10-02 12:29 | CT_ITS ---
PROCEDURE INFORMATION: Exam: CTA Neck With Contrast Exam date and time: 10/02/2023 1:11 PM Age: 88 years old Clinical indication: Cognitive deficit; Altered mental status; Additional info: AMS TECHNIQUE: Imaging protocol: Computed tomographic angiography of the neck with contrast. Exam focused on the cervical segments of the vasculature. 3D rendering (Not supervised by radiologist): MIP and/or 3D reconstructed images were created by the technologist. Radiation optimization: All CT scans at this facility use at least one of these dose optimization techniques: automated exposure control; mA and/or kV adjustment per patient size (includes targeted exams where dose is matched to clinical indication); or iterative reconstruction. Contrast material: ISOVUE 370; Contrast volume: 100 ml; Contrast route: INTRAVENOUS (IV); REPORTING DATA: Count of CT and Cardiac NM exams in prior 12 months: This patient has received 7 known CTs and 0 known cardiac nuclear medicine studies in the 12 months prior to the current study. COMPARISON: CT CERVICAL SPINE WO CON 09/28/2023 9:11 PM FINDINGS: Limitations: A study is technically limited due to inadequate opacification of vascular structures as well as motion artifact. Right common carotid artery: No stenosis. No dissection or occlusion. Right internal carotid artery: Calcification origin right ICA with moderate stenosis (50-69%.) Right external carotid artery: No occlusion or stenosis of the origin. Left common carotid artery: No stenosis. No dissection or occlusion. Left internal carotid artery: Extensive calcification origin left ICA with tight stenosis (greater than 70%.) Left external carotid artery: No occlusion or stenosis of the origin. Right vertebral artery: Right vertebral artery is not adequately opacified for assessment. Left vertebral artery: Left vertebral artery is not adequately opacified for assessment. Lymph nodes: Mild mediastinal lymphadenopathy partially visualized, unchanged, nonspecific. Soft tissues: Normal. No significant soft tissue swelling. Bones/joints: Moderate degenerative changes mid-lower cervical spine. No acute bony abnormalities. Lungs: Mild subpleural interstitial changes and thickening of the major fissures in the upper lung zones partially visualized. IMPRESSION: 1. Technically limited examination with inadequate opacification of vascular structures. 2. Severe stenosis left ICA (greater than 70%). 3. Moderate stenosis right ICA (50-69%). 4. Limited assessment of the vertebral arteries. REFERENCES: NASCET CRITERIA. The degree of stenosis in the cervical segment of the internal carotid artery is based on NASCET criteria. Normal is no stenosis. Mild is less than 50% stenosis. Moderate is 50-69% stenosis. Severe is 70% to 99% stenosis. Total occlusion is no detectable patent lumen.
--- NOTE | 2023-10-02 12:29 | XR_ITS ---
PROCEDURE INFORMATION: Exam: XR Chest Exam date and time: 10/02/2023 1:13 PM Age: 88 years old Clinical indication: Other: Decreased o2; Additional info: AMS decrease o2 TECHNIQUE: Imaging protocol: Radiologic exam of the chest. Views: 1 view. COMPARISON: CT ANGIO CHEST PE PROTOCOL 10/02/2023 1:05 PM FINDINGS: Lungs: Consolidation has developed in the mid and lower right lung and to a lesser degree the left lung base. Peribronchial thickening is present. Vascular congestion is present. Pleural spaces: No pleural effusion. No pneumothorax. Heart/Mediastinum: No abnormalities. No cardiomegaly. No pulmonary vascular congestion. Bones/joints: No fractures or bone lesions. IMPRESSION: Bilateral perihilar and bibasilar opacities have worsened since 09/28/2023 and could represent pulmonary edema or pneumonia.
--- NOTE | 2023-10-02 12:33 | CT_ITS ---
PROCEDURE INFORMATION: Exam: CTA Abdomen and Pelvis With Contrast Exam date and time: 10/02/2023 1:05 PM Age: 88 years old Clinical indication: Other: Abd tenderness; Additional info: Abd tenderness, AMS, hotn, HX aaa TECHNIQUE: Imaging protocol: Computed tomographic angiography of the abdomen and pelvis with contrast. Exam focused on the arteries. 3D rendering (Not supervised by radiologist): MIP and/or 3D reconstructed images were created by the technologist. Radiation optimization: All CT scans at this facility use at least one of these dose optimization techniques: automated exposure control; mA and/or kV adjustment per patient size (includes targeted exams where dose is matched to clinical indication); or iterative reconstruction. Contrast material: ISOVUE; Contrast volume: 75 ml; Contrast route: INTRAVENOUS (IV); REPORTING DATA: Count of CT and Cardiac NM exams in prior 12 months: This patient has received 7 known CTs and 0 known cardiac nuclear medicine studies in the 12 months prior to the current study. COMPARISON: CT ANGIO ABDOMEN PELVIS 06/26/2023 3:16 AM FINDINGS: Lungs: Dependent atelectasis. Pleural spaces: Small bilateral pleural effusions. Pulmonary arteries: Intraluminal filling defects in the subsegmental pulmonary arteries of the medial basal right lower lobe. Aorta: 3.6 cm infrarenal abdominal aortic aneurysm is unchanged. No intimal dissection or significant stenosis. Celiac trunk and mesenteric arteries: No occlusion or significant stenosis. Renal arteries: No occlusion or significant stenosis. Right iliac arteries: No occlusion or significant stenosis. Left iliac arteries: No occlusion or significant stenosis. Liver: No mass. Gallbladder and bile ducts: No calcified stones. No ductal dilation. Pancreas: No mass. No ductal dilation. Spleen: No splenomegaly. No mass or surrounding fluid. Adrenal glands: No mass. Kidneys and ureters: Right kidney has 2 subcentimeter nonenhancing cysts. No solid renal masses, calcified stones, or hydroureteronephrosis. Stomach and bowel: No intestinal masses, bowel wall thickening, or abnormal luminal dilatation. Appendix: No evidence of appendicitis. Intraperitoneal space: No free air. No significant fluid collection. Lymph nodes: No enlarged lymph nodes. Urinary bladder: No asymmetric bladder wall thickening or enhancement. Reproductive: No abnormalities as visualized. Bones/joints: No acute fracture or focal bone lesions. Soft tissues: No soft tissue masses. IMPRESSION: 1. No acute findings in the abdomen and pelvis. 2. Infrarenal abdominal aortic aneurysm measures 3.6 cm and is unchanged since 06/26/2023. 3. A few subsegmental pulmonary emboli are present in the medial basal segment of the right lower lobe. 4. Small bilateral pleural effusions and bibasilar dependent atelectasis. THIS REPORT CONTAINS FINDINGS THAT MAY BE CRITICAL TO PATIENT CARE. The findings were verbally communicated via telephone conference with Radha Mcclendon at 2:27 PM EST on 10/02/2023. The findings were acknowledged and understood.
--- NOTE | 2023-10-02 12:35 | ED_ITS ---
Discharge Plan Disposition Patient Disposition: Admitted Condition: Fair Chief Complaint: Weakness Clinical Impressions Clinical Impression: Pneumonia Qualifiers: Pneumonia type: due to unspecified organism Laterality: right Lung location: lower lobe of lung Qualified Code(s): J18.9 - Pneumonia, unspecified organism Pulmonary embolism Qualifiers: Pulmonary embolism type: unspecified Chronicity: acute Acute cor pulmonale presence: without acute cor pulmonale Qualified Code(s): I26.99 - Other pulmonary embolism without acute cor pulmonale Altered mental status Qualifiers: Altered mental status type: coma Coma depth: Yue coma 9-12 Coma timing: unspecified coma timing Qualified Code(s): R40.2420 - [place] coma scale score 9-12, unspecified time Discharge ED Provider: Radha Mcclendon General Adult HPI General Chief complaint: Weakness Stated complaint: respiratory distress Time Seen by Provider: 10/02/23 12:29 History of Present Illness HPI narrative: This 88-year-old female presents to the ER with concerns of altered mental status, low oxygen. Patient lives in a custodial and has been treated with 2 doses of z-pack and steroids for URI symptoms. Family reportedly was at bedside and did not think she was staying awake as much is normal so they wanted her brought to the ER. residential reports that patient took her medications like normal this morning. Patient is nonverbal at baseline with advanced dementia. She usually responds to talking by smiling and will follow some commands. Related Data Home Medications Medication Instructions Recorded Confirmed donepezil 10 mg tablet 10 mg PO DAILY dementia 07/09/22 07/09/22 furosemide 20 mg tablet 20 mg PO DAILY chf 07/09/22 07/09/22 ketoconazole 2 % topical cream 1 applic topical BID Skin condition 07/09/22 07/09/22 letrozole 2.5 mg tablet 2.5 mg PO DAILY cancer 07/09/22 07/09/22 memantine 5 mg tablet 5 mg PO DAILY dementia 07/09/22 07/09/22 metoprolol tartrate 25 mg tablet 12.5 mg PO DAILY Hypertension 07/09/22 07/09/22 potassium chloride 10 mEq 10 meq PO DAILY Supplement 07/09/22 07/09/22 capsule,extended release Previous Rx's Medication Instructions Recorded albuterol sulfate 90 mcg/actuation 2 inh inhalation Q6H PRN shortness 06/26/23 aerosol inhaler of breath or wheezing #6.7 grams Allergies Allergy/AdvReac Type Severity Reaction Status Date / Time No Known Allergies Allergy Verified 07/09/22 16:27 [facility] Disclaimer: The information contained in this section may have been updated after the patient was seen, as this information can be updated by other users. Medical History Anemia Atrial fibrillation Cardiomegaly Dementia GERD (gastroesophageal reflux disease) Hyperlipidemia Hypertension Neoplasm /cancer Social History Smoking Status: Unknown if ever smoked alcohol intake: never current occupational status: disabled Travel in the last 8 weeks: None ROS Obtained: Yes unobtainable due to mental status Physical Exam General General appearance: other (Ill appearing, decreased level of consciousness) Comment: Generally ill-appearing Head Head exam: atraumatic and normocephalic Eye Eye exam: Present PERRL and EOMI ENT ENT exam: Present mucous membranes moist and other (On nasal cannula) Neck Neck exam: Present normal inspection, full ROM and other (Left submandibular laceration is healing well. This is from a recent fall. Sutures are in place. Bruising is healing. No other abnormalities of the neck) Chest Chest inspection: Present symmetric chest wall rise Respiratory Respiratory exam: Present normal lung sounds bilaterally and wheezes (Patient has upper airway wheezing sounds, she does not have wheezing sounds in the lungs. She does not have true stridor); Absent respiratory distress or stridor Cardiovascular Cardiovascular exam: Present regular rate and normal rhythm Abdominal Exam Abdominal exam: Present soft and tenderness (Diffuse but no rebound or guarding); Absent distention, guarding or rebound Extremities Exam Extremities exam: Present full ROM Neurological Exam Neurological exam: Present other (Patient moves all extremities equally and localizes to pain, nonverbal at baseline but usually does respond to commands) Expanded Neurological Exam Coma scale eye opening: To pain Coma scale motor response: Localizes to pain Coma scale verbal response: Incomprehensible Coma scale total: 9 Psychiatric Psychiatric exam: Present normal affect and normal mood Skin Skin exam: Present warm and dry Medical Decision Making Amol Inquiry Pt receiving controlled substance: No Vital Signs: 10/02/23 12:25 10/02/23 13:41 10/02/23 14:01 Temperature 97.4 F L Temperature Source Rectal Pulse Rate 70 61 Pulse Rate [Right] 84 Respiratory Rate 19 16 18 Blood Pressure 115/65 108/60 L Blood Pressure [Right Arm] 118/61 Blood Pressure Mean 81 84 Blood Pressure Mean [Right Arm] 80 Blood Pressure Source [Right Arm] Automatic Cuff 02 Sat by Pulse Oximetry 96 99 98 Oxygen Delivery Method Nasal Cannula 10/02/23 14:31 Temperature Temperature Source Pulse Rate 60 Pulse Rate [Right] Respiratory Rate 18 Blood Pressure 112/49 L Blood Pressure [Right Arm] Blood Pressure Mean 70 Blood Pressure Mean [Right Arm] Blood Pressure Source [Right Arm] 02 Sat by Pulse Oximetry 99 Oxygen Delivery Method Lab Data Lab Results 10/02/23 12:29: Urine Color Yellow, Urine Appearance Clear, Urine pH 6.0, Ur Specific [place] 1.020, Urine Protein Negative, Urine Glucose (UA) Negative, Urine Ketones Negative, Urine Blood Negative, Urine Nitrate Negative, Urine Bilirubin Negative, Urine Urobilinogen 2.0, Ur Leukocyte Esterase Negative, Urine RBC None, Urine WBC None, Ur Squamous Epith Cells None, Urine Bacteria None 10/02/23 12:35: WBC 11.5 H, RBC 4.18 L, Hgb 12.6, Hct 41.1, MCV 98.3, MCH 30.1, MCHC 30.6 L, RDW 14.1, Plt Count 212, MPV 8.7, Neut % (Auto) 66.1, Lymph % (Auto) 25.0, [place] % (Auto) 4.1, Eos % (Auto) 4.5, Baso % (Auto) 0.4, Neut # (Auto) 7.6, Lymph # (Auto) 2.9, [place] # (Auto) 0.5, Eos # (Auto) 0.5 H, Baso # (Auto) 0.0, Sodium 140, Potassium 3.7, Chloride 104, Carbon Dioxide 36 H, Anion Gap 3.7 L, BUN 21 H, Creatinine 0.80, Estimated GFR 68, Est GFR ( Amer) 82, Glucose 188 H, Lactate 2.2 H, Calcium 8.7, Total Bilirubin 0.3, AST 33, ALT 32, Alkaline Phosphatase 80, Troponin I < 0.01, Total Protein 6.8, Albumin 3.3 L , Globulin 3.5 H, Albumin/Globulin Ratio 0.9 L, Lipase 52 10/02/23 12:35 10/02/23 12:35 Orders (Tests/Meds): ED MEDICATIONS Generic Name Dose Route Start Last Admin Trade Name Freq PRN Reason Stop Dose Admin Enoxaparin Sodium 100 mg 10/02/23 14:53 Enoxaparin 100mg/Ml Syringe SQ 10/02/23 14:54 ONCE ONE Ceftriaxone Sodium 1 gm/ 50 mls @ 100 mls/hr 10/02/23 14:15 10/02/23 14:18 Sodium Chloride IV 10/12/23 14:14 100 mls/hr Q12H SONYA Administration Iopamidol 175 ml 10/02/23 13:36 10/02/23 13:36 Iopamidol-370 (76%);100ml Bottle IV 10/02/23 13:37 175 ml ONCE ONE Administration Sodium Chloride 50 ml 10/02/23 13:36 10/02/23 13:36 0.9 % Sodium Chloride 50 Ml Vial IV 10/02/23 13:37 50 ml ONCE ONE Administration Sodium Chloride 10 ml 10/02/23 13:36 10/02/23 13:36 Sodium Chloride 0.9% 10ml Syr (Rad Only) IV 10/02/23 13:37 10 ml ONCE ONE Administration Discontinued Medications Generic Name Dose Route Start Last Admin Trade Name Freq PRN Reason Stop Dose Admin Lactated Ringer's 1,000 mls @ 999 mls/hr 10/02/23 12:29 10/02/23 13:33 Lactated Ringer's 1000 Ml Bag IV 10/02/23 13:29 999 mls/hr .Q1H1M ONE Administration Ceftriaxone Sodium 1 gm/ 50 mls @ 100 mls/hr 10/02/23 14:00 10/02/23 14:17 Sodium Chloride IV 10/12/23 13:59 Not Given Q24H SONYA ORDERS Category Date Time Status CT angio abdomen pelvis Stat Cat Scan 10/02/23 12:[address] angio chest PE protocol Stat Cat Scan 10/02/23 12:[address] angio head Stat Cat Scan 10/02/23 12:[address] angio neck Stat Cat Scan 10/02/23 12:[address] head/brain wo con Stat Cat Scan 10/02/23 12:29 Completed CXR --portable [XR chest portable] Stat Exams 10/02/23 12:29 Completed CBC w/Auto Diff [Complete Blood Count Auto Diff] Stat Lab 10/02/23 12:35 Completed CMP [Comprehensive Metabolic Panel] Stat Lab 10/02/23 12:35 Completed Lactic Acid Stat Lab 10/02/23 12:35 Completed Lipase Stat Lab 10/02/23 12:35 Completed Trop I [Troponin I] Stat Lab 10/02/23 12:35 Completed Troponin I Q3H Lab 10/02/23 15:30 Ordered Troponin I Q3H Lab 10/02/23 18:30 Ordered Urinalysis and Microscopic Stat Lab 10/02/23 12:29 Completed Blood Culture Stat Micro 10/02/23 13:39 Ordered VBG [Venous Blood Gas] Stat RT 10/02/23 13:12 Ordered ECG initial [place] Routine Y 10/02/23 13:39 Completed Medical Decision Narrative: In summary, this 88year old female presents to the emergency department today with concerns of difficulty breathing, hypoxia identified at custodial after family noted she was not staying awake as well as normal. She is actively being treated for URI which is a comorbidity of current condition among her other chronic medical conditions including dementia. On initial evaluation patient is GCS 10, localizes to pain in all extremities, opens eyes to pain, incomprehensible sounds are made, lungs are clear, she has upper airway wheezing consistent with mild obstruction, but she does not have wheezing in the lungs or other accessory sounds in the lungs. She is on nasal cannula. She was not tac hycardic or hypotensive on arrival. No falls since her last visit. Differential diagnosis includes but is not limited to intracranial bleed, sepsis, pneumonia, PE, patient also has a history of abdominal aortic aneurysm and is tender in the abdomen so I did consider AAA, UTI. Based on these concer ns, I ordered appropriate labs and imaging including CTAs. Patient does not meet sepsis criteria at this time. She is receiving 1 L of IV fluids and blood cultures have been ordered but I have not ordered empiric antibiotics. ECG personally interpreted demonstrates sinus rhythm, rate 68, normal axis, no STEMI, no interval abnormality. Patient received IV fluids for initial treatment. Labs personally reviewed demonstrate mild leukocytosis with WBC 11.5, this does not meet sepsis criteria, no anemia, sodium, potassium, chloride normal, mild prerenal azotemia but patient is already receiving IV fluids, hyperglycemia present but no increased anion gap, initial lactate elevated at 2.2, patient is receiving IV fluids. Initial troponin less than 0.01 decreasing suspicion for cardiac abnormality. XR personally interpreted demonstrates right lower lobe infiltrate new from comparison to prior chest x-ray concerning for pneumonia and consistent with the patient's presentation. I ordered Rocephin given patient is already on azithromycin at the custodial. CT imaging personally interpreted demonstrate no new acute intracranial abnormality on CT head. See radiology read for final interpretation. I had interactive discussion with the radiologist regarding the CTAs of the head, neck, chest, abdomen, pelvis. 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 Patient does not have any localizing deficits that correlate. [place] ent also has small PE in the right lower lobe, no right heart strain. Patient does not have EKG changes or troponin elevation that would be concerning for right heart strain. I ordered Lovenox for treatment. Additionally, patient has no new changes in her abdomen and pelvis according to the radiologist. See radiology reads for full interpretations.. Patient's daughter was at bedside and I reviewed results with her. I believe patient requires admission and daughter is amenable to this plan. Patient was already a DNR, but did not have paperwork regarding DNI. We discussed this further and daughter would like the patient to be DNI and understands this means she will not be intubated or placed on any breathing machines. She states this is consistent with the patient's wishes. Patient remained stable on reassessment and is appropriate for admission at this time. I discussed the patient with the hospitalist including the presence of pneumonia, PE, oxygen requirement, new IV antibiotics, and decreased GCS from baseline. Patient was accepted to the hospitalist service for continued management. Critical Care Critical Care Time Critical Care Time: No
[2023-10-02 12:51] LABS: Basophils % 0.4 % (0.1-2.0); Eosinophils # 0.5 K/mm3 (0.0-0.4); Eosinophils % 4.5 % (0.1-12.0); Hematocrit 41.1 % (37.0-47.0); Hemoglobin 12.6 g/dL (12.2-16.2); Lymphocytes # 2.9 K/mm3 (0.7-4.5); Mean Corpuscular HGB Conc 30.6 g/dL (31.8-35.4); Mean Corpuscular Hemoglobin 30.1 pg (27.0-31.2); Mean Corpuscular Volume 98.3 fl (81-99); Mean Platelet Volume 8.7 fl (7.4-10.4); Monocytes # 0.5 K/mm3 (0.1-1.0); Monocytes % 4.1 % (1.7-9.3); Neutrophils # 7.6 K/mm3 (1.8-7.8); Neutrophils % 66.1 % (37.0-80.0); Platelet Count 212 K/mm3 (142-424); Red Blood Count 4.18 M/mm3 (4.20-5.40); Red Cell Distribution Width 14.1 % (11.5-17.5); White Blood Count 11.5 K/mm3 (4.8-10.8)
[2023-10-02 12:55] LABS: Alanine Aminotransferase 32 U/L (12-78); Alkaline Phosphatase 80 U/L (38-126); Aspartate Amino Transferase 33 U/L (14-36); Bilirubin,Total 0.3 mg/dl (0.2-1.3); Blood Urea Nitrogen 21 mg/dl (7-17); Calcium 8.7 mg/dl (8.4-10.2); Carbon Dioxide 36 mmol/L (22.0-30.0); Chloride 104 mmol/L (98-107); Estimated Glomerular Filt Rate 68 ml/min (>60); GFR (African American) 82 ML/MIN (>60); Glucose 188 mg/dl (74-100); Lipase 52 U/L (23-300)
[2023-10-02 12:56] LABS: Albumin Level 3.3 g/dl (3.5-5.0); Albumin/Globulin Ratio 0.9 (1.1-1.8); Globulin 3.5 g/dL (1.3-3.2); Potassium 3.7 mmoL/L (3.5-5.1); Total Protein,Serum 6.8 g/dl (6.3-8.2)
[2023-10-02 13:02] LABS: Lactic Acid 2.2 mmol/L (0.7-2.1)
[2023-10-02 13:09] LABS: Troponin I < 0.01 ng/ml (0.00-0.034)
[2023-10-02 13:23] LABS: Anion Gap 3.7 mEq/L (5-15); Sodium 140 mmol/L (136-145)
[2023-10-02] MEDS: LACTATED RINGERS 1000ML 1,000 ML 999 ML IV (13:33)
[2023-10-02] MEDS: IOPAMIDOL-370 (76%);100ML BOTTLE 175 ML IV (13:36)
[2023-10-02] MEDS: SODIUM CHLORIDE 0.9% 10ML SYR (RAD ONLY) 10 ML IV (13:36)
[2023-10-02] MEDS: 0.9 % SODIUM CHLORIDE 50 ML VIAL IV (13:36)
--- NOTE | 2023-10-02 13:39 | ECG_ITS ---
APPROVED REPORT Exam: Resting ECG HR:68 bpm ECG Measurements Heart Rate 68 AXES IN 177 P 47 QRSd 95 QRS 35 QT 421 T 89 QTc 438 Conclusion SINUS RHYTHM NONSPECIFIC T-WAVE ABNORMALITY BORDERLINE ECG UNCONFIRMED REPORT Electronically signed by : Petey Maravilla MD 10/04/2023 09:04:25
[2023-10-02 14:01] LABS: Microscopic, Urine URINE MICROSCOPIC (MICROSCOPIC)
--- NOTE | 2023-10-02 14:11 | PC.NURSE ---
[facility] calling for Dr Mcclendon
[2023-10-02 14:18] LABS: Appearance,Urine CLEAR (Clear); Bilirubin,Urine Negative (Negative); Blood, Urine Negative (Negative); Color,Urine YELLOW (Yellow); Glucose,Urine (UA) Negative (Negative); Ketones,Urine Negative (Negative); Leukocyte Esterase,Urine Negative (Negative); Nitrate,Urine Negative (Negative); Protein,Urine Negative (Negative)
[2023-10-02] MEDS: CEFTRIAXONE 1 GM 1 GM in 0.9 % SODIUM CHLORIDE 50 ML IV (14:18)
--- NOTE | 2023-10-02 14:27 | PC.NURSE ---
Dr. Mcclendon s/w [facility] with regarding CT A/P
--- NOTE | 2023-10-02 14:28 | PC.NURSE ---
Dr. Mcclendon updated pt's family with admission & POC
--- NOTE | 2023-10-02 14:31 | PC.NURSE ---
[facility] called i spoke with Shana Ruiz LPN advised pt being admitted with Pneumonia.
--- NOTE | 2023-10-02 14:40 | PC.NURSE ---
ATTEMPTED TO REACH PHARMACY PRODUCT REPRESENTATIVE FOR LOVENOX DOSE, LEFT MESSAGE
--- NOTE | 2023-10-02 14:42 | PC.NURSE ---
DR PEÑA SPEAKING WITH HOSPITALIST
--- NOTE | 2023-10-02 14:46 | PC.NURSE ---
[facility] NOTIFIED OF ADMISSION
[2023-10-02] MEDS: ENOXAPARIN 100MG/ML SYRINGE 100 MG SQ (15:00)
--- NOTE | 2023-10-02 15:02 | PC.NURSE ---
Called report to Mechelle CLINE on 2nd floor and answered all questions
[2023-10-02 16:18] LABS: Troponin I < 0.01 ng/ml (0.00-0.034)
[2023-10-02 16:42] LABS: Reflex Lactic Add Lactic Reflex
--- NOTE | 2023-10-02 16:54 | EXP.HP ---
History of Present Illness *Admission Date: 10/02/23 *Reason for visit:: Hypoxia *History of present illness: Patient is a 88-year-old female who is a detention resident presented to hospital due to change in mental status. Patient has past medical history of pulmonary embolism. Patient appears confused and unable to provide reliable history. Reportedly patient was found hypoxic and was being treated for possible pneumonia at detention facility with azithromycin. Patient had not much improvement and was brought to the hospital for further evaluation. Patient is nonverbal at baseline. [facility] Disclaimer: The information contained in this section may have been updated after the patient was seen, as this information can be updated by other users. Medical History (Updated 10/02/23 @ 16:56 by Gurpreet Acuña MD) Anemia Anxiety Atrial fibrillation Breast cancer Cardiomegaly Dementia Folate deficiency GERD (gastroesophageal reflux disease) Hyperlipidemia Hypertension Neoplasm /cancer Vitamin D deficiency Family History (Updated 10/02/23 @ 15:49 by Alayna Mantilla, SON) Other Unknown family medical history Social History (Updated 10/02/23 @ 15:49 by Alayna Mantilla, SON) Smoking Status: Unknown if ever smoked alcohol intake: never current occupational status: disabled Travel in the last 8 weeks: None Review of Systems Review of Systems Review of systems (narrative): as per [facility] Meds Home Medications and Allergies Home Medications Medication Instructions Recorded Confirmed Type ketoconazole 2 % topical cream 1 applic topical BID Rash 07/09/22 10/02/23 History letrozole 2.5 mg tablet 2.5 mg PO DAILY cancer 07/09/22 10/02/23 History acetaminophen 500 mg tablet 1,000 mg PO Q6H PRN FEVER/PAIN 10/02/23 10/02/23 History azithromycin 500 mg tablet 500 mg PO DAILY URI/UTI SYMPTOMS 10/02/23 10/02/23 History cholecalciferol (vitamin D3) 125 125 mcg PO WEEKLY VIT D DEFICIENCY 10/02/23 10/02/23 History mcg (5,000 unit) tablet (Vitamin D3) folic acid 1 mg tablet 1 mg PO DAILY Supplement 10/02/23 10/02/23 History ipratropium bromide 0.02 % 0.02 ml inhalation BID SOA 10/02/23 10/02/23 History solution for inhalation ipratropium bromide 21 mcg (0.03 1 spray intranasal BID RHINITIS 10/02/23 10/02/23 History %) nasal spray polyethylene glycol 3350 17 gram 17 g PO DAILY Constipation 10/02/23 10/02/23 History oral powder packet (Miralax) prednisone 20 mg tablet 20 mg PO DAILY URI 10/02/23 10/02/23 History New Prescriptions to Start Prescriptions: Allergies Allergy/AdvReac Type Severity Reaction Status Date / Time No Known Allergies Allergy Verified 07/09/22 16:27 Exam Data for Last 24 hours Vital signs and Labs for Last 24 Hours: Temp Pulse Resp BP Pulse Ox O2 Del Method O2 Flow Rate 98.3 F 67 16 116/67 96 Nasal Cannula 3 10/02/23 15:38 10/02/23 15:38 10/02/23 15:38 10/02/23 15:38 10/02/23 15:38 10/02/23 15:47 10/02/23 15:47 Laboratory Results - last 24 hr 10/02/23 12:29: Urine Color Yellow, Urine Appearance Clear, Urine pH 6.0, Ur Specific [place] 1.020, Urine Protein Negative, Urine Glucose (UA) Negative, Urine Ketones Negative, Urine Blood Negative, Urine Nitrate Negative, Urine Bilirubin Negative, Urine Urobilinogen 2.0, Ur Leukocyte Esterase Negative, Urine RBC None, Urine WBC None, Ur Squamous Epith Cells None, Urine Bacteria None 10/02/23 12:35: WBC 11.5 H, RBC 4.18 L, Hgb 12.6, Hct 41.1, MCV 98.3, MCH 30.1, MCHC 30.6 L, RDW 14.1, Plt Count 212, MPV 8.7, Neut % (Auto) 66.1, Lymph % (Auto) 25.0, [place] % (Auto) 4.1, Eos % (Auto) 4.5, Baso % (Auto) 0.4, Neut # (Auto) 7.6, Lymph # (Auto) 2.9, [place] # (Auto) 0.5, Eos # (Auto) 0.5 H, Baso # (Auto) 0.0, Sodium 140, Potassium 3.7, Chloride 104, Carbon Dioxide 36 H, Anion Gap 3.7 L, BUN 21 H, Creatinine 0.80, Estimated GFR 68, Est GFR ( Amer) 82, Glucose 188 H, Lactate 2.2 H, Calcium 8.7, Total Bilirubin 0.3, AST 33, ALT 32, Alkaline Phosphatase 80, Troponin I < 0.01, Total Protein 6.8, Albumin 3.3 L, Globulin 3.5 H, Albumin/Globulin Ratio 0.9 L, Lipase 52 10/02/23 15:40: Troponin I < 0.01 I & O for Last 24 hours: Intake & Output 09/29/23 09/30/23 10/01/23 10/02/23 23:59 23:59 23:59 23:59 Weight 100.244 kg Constitutional Constitutional: no acute distress *Routine HEENT Exam Head: Present normocephalic Eye: Present EOMI and PERRL ENT: Present mucous membranes moist *Routine Neck Exam Neck: Present supple; Absent lymphadenopathy *Routine Respiratory Exam Respiratory: Present CTA bilaterally *Routine Cardiovascular Exam Cardiovascular: Present RRR *Routine Abdominal Exam Abdominal: Present soft and normoactive bowel sounds; Absent tenderness *Routine Rectal Exam Rectal:: deferred *Routine Genitalia Exam Genitalia:: deferred *Routine Extremities Exam Extremities: Absent cyanosis, clubbing or edema *Routine Skin Exam Skin: Present warm; Absent rash *Routine Neurological Exam Neurological: Present alert Comments: AOx1 Assessment and Plan *Assessment and plan (1) Pneumonia: Status: Acute Qualifiers: Laterality: right Lung location: lower lobe of lung Pneumonia type: due to unspecified organism Qualified Code(s): J18.9 - Pneumonia, unspecified organism Category: Medical Code(s): J18.9 - Pneumonia, unspecified organism (2) Pulmonary embolism: Status: Acute Qualifiers: Acute cor pulmonale presence: without acute cor pulmonale Chronicity: acute Pulmonary embolism type: unspecified Qualified Code(s): I26.99 - Other pulmonary embolism without acute cor pulmonale Category: Medical Code(s): I26.99 - Other pulmonary embolism without acute cor pulmonale (3) Altered mental status: Status: Acute Qualifiers: Altered mental status type: coma Coma depth: Yue coma 9-12 Coma timing: unspecified coma timing Qualified Code(s): R40.2420 - Y[place] coma scale score 9-12, unspecified time Category: Medical Code(s): R41.82 - Altered mental status, unspecified (4) Lactic acid acidosis: Status: Acute Category: Medical Code(s): E87.20 - Acidosis, unspecified Plan Patient is a 88-year-old female who is a detention resident presented to hospital due to change in mental status. Patient has past medical history of pulmonary embolism. Patient appears confused and unable to provide reliable history. Reportedly patient was found hypoxic and was being treated for possible pneumonia at detention facility with azithromycin. Patient had not much improvement and was brought to the hospital for further evaluation. Patient is nonverbal at baseline. Assessment and plan Acute hypoxic respiratory failure satting less than 90% on room air Right lower lobe pneumonia Bilateral pleural effusion Acute pulmonary emboli right lower lobe -Continue O2 support -Start vancomycin, cefepime -Check procalcitonin -Check urine Legionella antigen, MRSA nasal swab -Check blood cultures -Therapeutic Lovenox for PE, CTA chest reviewed -Consult cardiology, consult pulmonary-appreciate recommendation leukocytosis likely reactive Acute metabolic encephalopathy -Patient has known history of dementia and nonverbal at baseline -CTA head and neck, CT head-unremarkable for acute intracranial process, 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
[2023-10-02 17:16] LABS: Lactic Acid Follow Up (RFLX 1) 1.2 mmol/L (0.7-2.1)
--- NOTE | 2023-10-02 17:20 | PC.WOUNDNOTE ---
Stitches and bruising to (L) left side of chin Scabbing to LLE
[2023-10-02] MEDS: VANCOMYCIN CONSULT REQUEST 1 EACH NOTAPPLIC (17:29)
[2023-10-02 17:33] LABS: Procalcitonin 0.079 ng/mL (0.0-2.0)
[2023-10-02] MEDS: 0.9 % SODIUM CHLORIDE 1000ML 1,000 ML 75 ML IV (17:41)
[2023-10-02] MEDS: CEFEPIME HCL 2 GM in 0.9 % SODIUM CHLORIDE 100 ML IV (17:41)
[2023-10-02] MEDS: VANCOMYCIN HCL 2,500 MG in 0.9 % SODIUM CHLORIDE 250 ML 125 MG IV (18:20)
[2023-10-02 19:07] LABS: Troponin I < 0.01 ng/ml (0.00-0.034)
[2023-10-02 20:24] LABS: POC Glucose,Bedside 116 (70-110)
[2023-10-03] VITALS (12 sets, daily range): BP systolic 92–164; BP diastolic 52–80; PULSE 68–93; RESP 16–22; TEMP 36.7–37.6; O2SAT 89–94; BMI 36.9; BMI 36.7
[2023-10-03] MEDS: CEFEPIME HCL 2 GM in 0.9 % SODIUM CHLORIDE 100 ML IV ×3 (00:38→16:38)
[2023-10-03] MEDS: CEFTRIAXONE 1 GM 1 GM in 0.9 % SODIUM CHLORIDE 50 ML IV (02:19)
--- NOTE | 2023-10-03 03:16 | PC.NURSE ---
Pt does not respond to stimulation and is non verbal. Pt has ahd moments of moaning and discomfort this shift. Pt has tolerated antibiotic therapy well this shift and has tolerated 3L of O2 as well. Pt is resting at this time.
[2023-10-03 05:52] LABS: POC Glucose,Bedside 98 (70-110)
[2023-10-03 06:43] LABS: VBG PH 7.25 mmol/L (7.31-7.41)
[2023-10-03 06:45] LABS: VBG PCO2 66.8 mmol/L (35-51)
[2023-10-03 06:46] LABS: VBG Base Excess 1.2 mmol/L (-2.4-2.3); VBG HCO3 28.4 mmol/L (23-30); VBG Oxygen Saturation 89.2 % (50-70); VBG PO2 63.3 mmol/L (28-40); VBG Total CO2 30.5 mmol/L (23-27)
[2023-10-03 07:10] LABS: Basophils % 0.3 % (0.1-2.0); Eosinophils # 0.3 K/mm3 (0.0-0.4); Eosinophils % 3.1 % (0.1-12.0); Hematocrit 38.7 % (37.0-47.0); Lymphocytes # 2.3 K/mm3 (0.7-4.5); Lymphocytes % 21.7 % (10-50); Mean Corpuscular HGB Conc 30.9 g/dL (31.8-35.4); Mean Corpuscular Hemoglobin 30.2 pg (27.0-31.2); Mean Corpuscular Volume 97.7 fl (81-99); Mean Platelet Volume 8.8 fl (7.4-10.4); Monocytes # 0.5 K/mm3 (0.1-1.0); Monocytes % 4.3 % (1.7-9.3); Neutrophils # 7.5 K/mm3 (1.8-7.8); Neutrophils % 70.6 % (37.0-80.0); Platelet Count 190 K/mm3 (142-424); Red Blood Count 3.97 M/mm3 (4.20-5.40); Red Cell Distribution Width 14.1 % (11.5-17.5); White Blood Count 10.6 K/mm3 (4.8-10.8)
[2023-10-03 07:20] LABS: Chloride 107 mmol/L (98-107); Potassium 3.8 mmoL/L (3.5-5.1); Sodium 141 mmol/L (136-145)
[2023-10-03 07:23] LABS: Anion Gap 7.8 mEq/L (5-15); Blood Urea Nitrogen 19 mg/dl (7-17); Carbon Dioxide 30 mmol/L (22.0-30.0); Creatinine Clearance Estimated 62 mL/min (50-200); Estimated Glomerular Filt Rate 68 ml/min (>60); GFR (African American) 82 ML/MIN (>60)
[2023-10-03 07:24] LABS: Calcium 8.5 mg/dl (8.4-10.2); Glucose 95 mg/dl (74-100)
--- NOTE | 2023-10-03 07:39 | SW/DCPLANNER ---
Addendum entered by Julissa Bauman 10/04/23 08:18: I have updated Lashawn w/ [facility] that the plan for this patient is to return today. Original Note: This patient currently resides at [facility] level of care. I will continue to follow up w/ Lashawn at [facility] until patient is medically stable for discharge. Discharge date is unknown at this time.
[2023-10-03 08:12] LABS: Adenovirus,PCR Not Detected (NotDetected); Coronavirus 19, PCR Not Detected (NotDetected); Coronavirus 229E Not Detected (NotDetected); Coronavirus NL63 Not Detected (NotDetected); Coronavirus OC43 Not Detected (NotDetected); Coronovirus HKU1,PCR Not Detected (NotDetected); Human Metapneumovirus Not Detected (NotDetected); Influenza A, PCR Not Detected (NotDetected); Influenza AH1, 2009 Not Detected (NotDetected); Influenza AH1, PCR Not Detected (NotDetected); Influenza AH3,PCR Not Detected (NotDetected); Influenza B, PCR Not Detected (NotDetected); Parainfluenza 1, PCR Not Detected (NotDetected); Parainfluenza 2, PCR Not Detected (NotDetected); Parainfluenza 3, PCR Not Detected (NotDetected); Parainfluenza 4, PCR Not Detected (NotDetected); Rhinovirus/Enterovirus Not Detected (NotDetected)
--- NOTE | 2023-10-03 08:16 | P.CONPHA_ITS ---
Pharmacy Consult Date: 10/03/23 Time: 08:16 Referring provider: DR NEGRETE Reason for Consult:: VANCOMYCIN DOSING CONSULT Allergies Allergy/AdvReac Type Severity Reaction Status Date / Time No Known Allergies Allergy Verified 07/09/22 16:27 Home Medications Medication Instructions Recorded Confirmed Type ketoconazole 2 % topical cream 1 applic topical BID Rash 07/09/22 10/02/23 Hi story letrozole 2.5 mg tablet 2.5 mg PO DAILY cancer 07/09/22 10/02/23 History acetaminophen 500 mg tablet 1,000 mg PO Q6H PRN FEVER/PAIN 10/02/23 10/02/23 History azithromycin 500 mg tablet 500 mg PO DAILY URI/UTI SYMPTOMS 10/02/23 10/02/23 History cholecalciferol (vitamin D3) 125 125 mcg PO WEEKLY VIT D DEFICIENCY 10/02/23 10/02/23 History mcg (5,000 unit) tablet (Vitamin D3) folic acid 1 mg tablet 1 mg PO DAILY Supplement 10/02/23 10/02/23 History ipratropium bromide 0.02 % 0.02 ml inhalation BID SOA 10/02/23 10/02/23 History solution for inhalation ipratropium bromide 21 mcg (0.03 1 spray intranasal BID RHINITIS 10/02/23 10/02/23 History %) nasal spray polyethylene glycol 3350 17 gram 17 g PO DAILY Constipation 10/02/23 10/02/23 History oral powder packet (Miralax) prednisone 20 mg tablet 20 mg PO DAILY URI 10/02/23 10/02/23 History New Prescriptions to Start Prescriptions: Height: 1.65 m Weight: 100.652 kg Laboratory Results:: Laboratory Results - last 24 hr 10/02/23 12:29: Urine Color Yellow, Urine Appearance Clear, Urine pH 6.0, Ur Specific [place] 1.020, Urine Protein Negative, Urine Glucose (UA) Negative, Urine Ketones Negative, Urine Blood Negative, Urine Nitrate Negative, Urine [place] irubin Negative, Urine Urobilinogen 2.0, Ur Leukocyte Esterase Negative, Urine RBC None, Urine WBC None, Ur Squamous Epith Cells None, Urine Bacteria None 10/02/23 12:35: WBC 11.5 H, RBC 4.18 L, Hgb 12.6, Hct 41.1, MCV 98.3, MCH 30.1, MCHC 30.6 L, RDW 14.1, Plt Count 212, MPV 8.7, Neut % (Auto) 66.1, Lymph % (Auto) 25.0, [place] % (Auto) 4.1, Eos % (Auto) 4.5, Baso % (Auto) 0.4, Neut # (Auto) 7.6, Lymph # (Auto) 2.9, [place] # (Auto) 0.5, Eos # (Auto) 0.5 H, Baso # (Auto) 0.0, Sodium 140, Potassium 3.7, Chloride 104, Carbon Dioxide 36 H, Anion Gap 3.7 L, BUN 21 H, Creatinine 0.80, Estimated GFR 68, Est GFR ( Amer) 82, Glucose 188 H, Lactate 2.2 H, Calcium 8.7, Total Bilirubin 0.3, AST 33, ALT 32, Alkaline Phosphatase 80, Troponin I < 0.01, Total Protein 6.8, Albumin 3.3 L , Globulin 3.5 H, Albumin/Globulin Ratio 0.9 L, Lipase 52, Procalcitonin 0.079 10/02/23 13:12: VBG pH 7.25 L, VBG pCO2 66.8 H, VBG pO2 63.3 H, VBG HCO3 28.4, VBG Total CO2 30.5 H, VBG O2 Saturation 89.2 H, VBG Base Excess 1.2 10/02/23 15:40: Troponin I < 0.01 10/02/23 17:00: Lactate 1.2 10/02/23 18:30: Troponin I < 0.01 10/02/23 20:05: POC Glucose 116 H 10/03/23 05:37: POC Glucose 98 10/03/23 06:44: WBC 10.6, RBC 3.97 L, Hgb 12.0 L, Hct 38.7, MCV 97.7, MCH 30.2, MCHC 30.9 L, RDW 14.1, Plt Count 190, MPV 8.8, Neut % (Auto) 70.6, Lymph % (Auto) 21.7, [place] % (Auto) 4.3, Eos % (Auto) 3.1, Baso % (Auto) 0.3, Neut # (Auto) 7.5, Lymph # (Auto) 2.3, [place] # (Auto) 0.5, Eos # (Auto) 0.3, Baso # (Auto) 0.0, Sodium 141, Potassium 3.8, Chloride 107, Carbon Dioxide 30, Anion Gap 7.8, BUN 19 H, Creatinine 0.80, Estimated Creat Clear 62, Estimated GFR 68, Est GFR ( Amer) 82, Glucose 95 D, Calcium 8.5 Medical History: Medical History (Updated 10/02/23 @ 16:56 by Gurpreet Acuña MD) Anemia Anxiety Atrial fibrillation Breast cancer Cardiomegaly Dementia Folate deficiency GERD (gastroesophageal reflux disease) Hyperlipidemia Hypertension Neoplasm /cancer Vitamin D deficiency Assessment and Plan Assessment and plan all Dx Assessment and Plan for all problems:: Pharmacokinetic dosing service Objective: Age: 88 yo Serum creatinine: 1 mg/dL Height: 65.0 Inches Weight (kg): 100.652 Diagnosis: PNEUMONIA Assessment: IBW (kg): 57.00 Dosing wt(kg): 100.652 Estimated Creatinine clearance (ml/min): 35.0 CRCL method: Cockcroft and Gault using ibw(default). Drug selected: Vancomycin Loading dose (mg): 2500 MG Vd (liters): 70.5 (factor used: 0.7 L/kg) Hollis (hr-1): 0.033 Half life (hrs): 21.00 CLvanco=?? 2.327 L/hr Recommended dose: 1250 mg Interval: 24 hrs Infusion time (hrs): 2.0 Predicted peak (mcg/mL): 31.4 Predicted trough (mcg/mL): 15.19 Total body weight is being used for vancomycin dosing. Recommendations: Give Vancomycin 1250 mg q 24 hrs with an expected Cpeak of 31.4 mcg/ml and an expected Ctrough of 15.19 mcg/ml AUC 0-24 /PRIYA Data: PRIYA 0.5 mcg/mL:?? AUC/PRIYA:? 1074.3 PRIYA 1.0 mcg/mL:?? AUC/PRIYA:? 537.2 --------- PRIYA 1.5 mcg/mL:?? AUC/PRIYA:? 358.1 PRIYA 2.0 mcg/mL:?? AUC/PRIYA:? 268.6 Thank you for the consult
[2023-10-03 09:46] LABS: Ammonia 11 umol/L (9-30)
[2023-10-03] MEDS: ENOXAPARIN 100MG/ML SYRINGE 100 MG SQ ×2 (09:49→21:02)
[2023-10-03 09:50] LABS: Respiratory Syncytial Virus Detected (NotDetected)
[2023-10-03] MEDS: MINERAL OIL ENEMA 133ML 133 ML RC (09:50)
[2023-10-03 10:10] LABS: ABG HCO3 30.8 mmhg (22.0-26.0); ABG Oxygen Saturation 91 % (90-100); ABG PH 7.34 mmol/L (7.35-7.45); ABG PO2 60.2 mmhg (80-100); ABG TCO2 32.6 mmhg (23-27)
[2023-10-03 10:13] LABS: Oxygen 3 %
[2023-10-03 10:14] LABS: Source Right Brachial
[2023-10-03 10:15] LABS: ABG PCO2 59.1 mmhg (35.0-45.0)
--- NOTE | 2023-10-03 10:46 | HMH.PHAINT1 ---
Pharmacy Intervention Comments: Verified home med list from [facility] faxed from [place]
[2023-10-03] MEDS: IPRATROPIUM/ALBUTEROL 3 ML NEB IH ×4 (11:20→21:41)
[2023-10-03 11:48] LABS: POC Glucose,Bedside 92 (70-110)
--- NOTE | 2023-10-03 16:04 | P.PN_ITS ---
Subjective *Date: 10/03/23 *Time: 16:13 Interval history: Patient remains altered this morning. Reviewed chest imaging showing PE in right lower lobe. Reviewed CT of abdomen showing abdominal gaseous distention and constipation. Grimaces to pain but no response to verbal stimuli. On 3 L nasal cannula. No nausea or vomiting. Afebrile. Medical Exam Vital signs and Labs for Last 24 Hours: Vital Signs Temp Pulse Pulse Resp BP Pulse Ox O2 Del Method 10/03/23 15:56 Nasal Cannula 10/03/23 15:00 Nasal Cannula 10/03/23 08:00 Nasal Cannula 10/03/23 14:02 80 10/03/23 14:02 84 10/03/23 13:00 Nasal Cannula 10/03/23 12:00 99.0 F 93 H 18 164/79 H 89 L Nasal Cannula 10/03/23 11:20 92 L Nasal Cannula 10/03/23 11:25 68 10/03/23 11:25 75 10/03/23 11:00 Nasal Cannula 10/03/23 09:00 Nasal Cannula 10/03/23 08:00 98.3 F 71 16 137/63 93 L Nasal Cannula 10/03/23 04:00 98.1 F 83 22 154/80 H 93 L Nasal Cannula 10/03/23 00:00 98.9 F 81 22 92/57 L 93 L Nasal Cannula 10/03/23 06:48 Nasal Cannula 10/03/23 04:45 Nasal Cannula 10/03/23 02:38 Nasal Cannula 10/03/23 01:00 10/02/23 22:50 Nasal Cannula 10/02/23 21:00 Nasal Cannula 10/02/23 19:52 Nasal Cannula 10/02/23 19:43 97.6 F 74 20 128/71 93 L Nasal Cannula 10/02/23 17:00 Nasal Cannula O2 Flow Rate 10/03/23 15:56 3 10/03/23 15:00 3 10/03/23 08:00 3 10/03/23 14:02 10/03/23 14:02 10/03/23 13:00 3 10/03/23 12:00 3 10/03/23 11:20 3 10/03/23 11:25 10/03/23 11:25 10/03/23 11:00 3 10/03/23 09:00 10/03/23 08:00 3 10/03/23 04:00 3 10/03/23 00:00 3 10/03/23 06:48 3 10/03/23 04:45 3 10/03/23 02:38 3 10/03/23 01:00 3 10/02/23 22:50 3 10/02/23 21:00 3 10/02/23 19:52 3 10/02/23 19:43 3 10/02/23 17:00 3 Intake and Output 10/03/23 10/03/23 10/03/23 07:59 15:59 23:59 Intake Total 0 / 2262 226 / 2262 Output Total 400 / 800 400 / 800 Balance -400 / 1462 1861 / 1461 Intake: Intake, Oral Amount 0 / 320 320 / 320 Intake, Total IV Amount 1941 0.9 % Sodium Chloride 1000ML , 1941 000 ml @ 75 mls/hr IV .[id number] [facility] Rx#:[id number] Output: Output, Urine Amount 400 / 800 400 / 800 Other: Number of Unmeasured Voids 0 Weight 100.652 kg 100 kg Patient Weight 10/03/23 23:59 Weight 100 kg Laboratory Results - last 24 hr 10/02/23 12:35: Procalcitonin 0.079 10/02/23 13:12: VBG pH 7.25 L, VBG pCO2 66.8 H, VBG pO2 63.3 H, VBG HCO3 28.4, VBG Total CO2 30.5 H, VBG O2 Saturation 89.2 H, VBG Base Excess 1.2 10/02/23 15:40: Troponin I < 0.01 10/02/23 17:00: Lactate 1.2 10/02/23 18:30: Troponin I < 0.01 10/02/23 20:05: POC Glucose 116 H 10/03/23 05:37: POC Glucose 98 10/03/23 06:44: WBC 10.6, RBC 3.97 L, Hgb 12.0 L, Hct 38.7, MCV 97.7, MCH 30.2, MCHC 30.9 L, RDW 14.1, Plt Count 190, MPV 8.8, Neut % (Auto) 70.6, Lymph % (Auto) 21.7, [place] % (Auto) 4.3, Eos % (Auto) 3.1, Baso % (Auto) 0.3, Neut # (Auto) 7.5, Lymph # (Auto) 2.3, [place] # (Auto) 0.5, Eos # (Auto) 0.3, Baso # (Auto) 0.0, Sodium 141, Potassium 3.8, Chloride 107, Carbon Dioxide 30, Anion Gap 7.8, BUN 19 H, Creatinine 0.80, Estimated Creat Clear 62, Estimated GFR 68, Est GFR ( Amer) 82, Glucose 95 D, Calcium 8.5 10/03/23 08:00: Chlamy pneumoniae PCR TNP, Adenovirus (PCR) Not detected, B. pertussis DNA (PCR) TNP, Coronavirus OC43 (PCR) Not detected, Coronavirus HKU1 (PCR) Not detected, Coronavirus 229E (PCR) Not detected, SARS-CoV-2 (PCR) Not detected, Coronavirus NL63 (PCR) Not detected, Human Metapneumovir PCR Not detected, Influenza A (H1) PCR Not detected, Influ A (H1N1/09) PCR Not detected, Influenza A (H3) PCR Not detected, Influenza Type A (PCR) Not detected, Influenza Type B (PCR) Not detected, M. pneumoniae (PCR) TNP, Parainfluenza 1 (PCR) Not detected, Parainfluenza 2 (PCR) Not detected, Parainfluenza 3 (PCR) Not detected, Parainfluenza 4 (PCR) Not detected, RSV (PCR) Detected A, Entero/Rhino (PCR) Not detected 10/03/23 09:09: Specimen Source Right brachial, O2 % 3, ABG pH 7.34 L, ABG pCO2 59.1 H, ABG pO2 60.2 L, ABG HCO3 30.8 H, ABG Total CO2 32.6 H, ABG O2 Saturation 91, ABG Base Excess 5.0 H, Donovan Test n/a 10/03/23 09:25: Ammonia 11 10/03/23 11:40: POC Glucose 92 I & O for Labs for Last 24 Hours: Intake & Output 09/30/23 10/01/23 10/02/23 10/03/23 23:59 23:59 23:59 23:59 Intake Total 2262 / 2262 Output Total 375 / 375 800 / 800 Balance -375 / -375 1462 / 1462 Weight 100.244 kg 100 kg Constitutional: Present no acute distress, obese, chronically ill appearing and somnolent Head: Present atraumatic ENT: Present normal exam Neck: Present normal inspection Respiratory: Present rhonchi, crackles and normal respiratory effort; Absent wheezes Cardiac: Present Reg Rate and Rhythm GI: Present normal bowel sounds; Absent tenderness Extremities: Present normal inspection and full ROM Skin: Present intact; Absent erythema Neuro: Present moves all extremities; Absent alert, awake or oriented x 3 Assessment and Plan *Assessment and plan (1) Pneumonia: Status: Acute Qualifiers: Laterality: right Lung location: lower lobe of lung Pneumonia type: due to unspecified organism Qualified Code(s): J18.9 - Pneumonia, unspecified organism Category: Medical Code(s): J18.9 - Pneumonia, unspecified organism (2) Pulmonary embolism: Status: Acute Qualifiers: Acute cor pulmonale presence: without acute cor pulmonale Chronicity: a cute Pulmonary embolism type: unspecified Qualified Code(s): I26.99 - Other pulmonary embolism without acute cor pulmonale Category: Medical Code(s): I26.99 - Other pulmonary embolism without acute cor pulmonale (3) Altered mental status: Status: Acute Qualifiers: Altered mental status type: coma Coma depth: Yue coma 9-12 Coma timing: unspecified coma timing Qualified Code(s): R40.2420 - Yue coma scale score 9-12, unspecified time Category: Medical Code(s): R41.82 - Altered mental status, unspecified (4) Lactic acid acidosis: Status: Acute Category: Medical Code(s): E87.20 - Acidosis, unspecified Plan Patient is a 88-year-old female who is a senior care resident presented to hospital due to change in mental status. Patient has past medical history of pulmonary embolism. Patient appears confused and unable to provide reliable history. Reportedly patient was found hypoxic and was being treated for possible pneumonia at senior care facility with azithromycin. Patient had not much improvement and was brought to the hospital for further evaluation. Continues to be altered this morning. Comprehensive panel positive for RSV. Problems addressed as follows: Acute hypoxic respiratory failure satting less than 90% on room air Right lower lobe pneumonia Bilateral pleural effusion Acute pulmonary emboli right lower lobe - Reviewed CT of chest showing right lower lobe PE; reviewed CT of abdomen showing gaseous distention and constipation: Initiated on bowel regimen -Continue O2 support, goal saturation greater 90%. Currently on 3 L. -Continue vancomycin and cefepime. Cefepime every 8 hours 2 g, monitor for toxicity with vancomycin. - urine Legionella antigen, MRSA nasal swab pending - Check blood cultures pending, negative to date -Lovenox 1 mg/kg twice daily. Will plan to transition to [facility] prior to discharge -Consult pulmonary-appreciate recommendations -White cell count improved to 10, platelets 190. Repeat CBC ordered for the morning -Electrolytes stable with sodium 141, potassium 3.8, creatinine 0.8. Repeat CMP ordered for the morning. Acute metabolic encephalopathy -Patient has known history of dementia and nonverbal at baseline - UA checked-not suggestive of infectious process -ABG obtained showing pH of 7.34, pCO2 59. Not significantly hypercarbic. -Ammonia obtained, 11. Chronic medical conditions History of dementia History of atrial fibrillation GERD Hypertension Therapeutic Lovenox, 1 mg/kg DNR Modified diet
--- NOTE | 2023-10-03 16:17 | PC.NURSE ---
PT IS RESTING IN BED. PT HAS BEEN SLEEPING MOST OF THE SHIFT. WILL OCCASIONALLY OPEN EYES AND DID STAY AWAKE LONG ENOUGH TO EAT A FEW BITES OF LUNCH THIS SHIFT. PT HAS BEEN NONVERBAL. ACCORDING TO PT'S DAUGHTER THIS HAS BEEN PT'S BASELINE FOR THE LAST 2 YEARS. TURNED AND REPOSITIONED FREQUENTLY. LUNG SOUNDS HAVE SCATTERED WHEEZES/RHONCHI. ABDOMEN FIRM/DISTENDED WITH HYPOACTIVE BOWEL SOUNDS. LACERATION AND BRUISING NOTED TO THE LEFT SIDE OF THE CHIN. SMALL ABRASION NOTED TO THE LLE. VERY MINIMAL UOP. WILL CONTINUE TO MONITOR.
[2023-10-03 16:55] LABS: POC Glucose,Bedside 108 (70-110)
[2023-10-03] MEDS: VANCOMYCIN/WATER FOR INJ (PEG) 1.25 GM/250 ML PIGGYBACK IV (17:27)
[2023-10-03] MEDS: BUDESONIDE 0.5MG/2ML NEB 0.5 MG IH (17:42)
[2023-10-03 20:38] LABS: POC Glucose,Bedside 101 (70-110)
[2023-10-03] MEDS: ACETAMINOPHEN 325MG TAB 650 MG PO (21:02)
[2023-10-04] VITALS (8 sets, daily range): BP systolic 112–142; BP diastolic 46–90; PULSE 52–103; RESP 18; TEMP 36.4–37.2; O2SAT 90–97; BMI 39.3
[2023-10-04] MEDS: CEFEPIME HCL 2 GM in 0.9 % SODIUM CHLORIDE 100 ML IV ×2 (00:31→08:17)
[2023-10-04] MEDS: 0.9 % SODIUM CHLORIDE 1000ML 1,000 ML 75 ML IV (02:09)
--- NOTE | 2023-10-04 03:53 | PC.NURSE ---
Pt remains nonverbal and alert only to name. Pt stool softener held due to large diarrhea stools. Pt has rested well this shit and scattered wheezes remain when auscultated. Pt does moan from time to time and pain medication was given post bath to help with discomfort. Pt does not show signs of pain at this time
[2023-10-04 05:09] LABS: POC Glucose,Bedside 93 (70-110)
[2023-10-04] MEDS: BUDESONIDE 0.5MG/2ML NEB 0.5 MG IH (05:54)
[2023-10-04] MEDS: IPRATROPIUM/ALBUTEROL 3 ML NEB IH ×3 (05:54→14:50)
[2023-10-04 06:45] LABS: Basophils % 0.3 % (0.1-2.0); Eosinophils # 0.4 K/mm3 (0.0-0.4); Eosinophils % 4.8 % (0.1-12.0); Hematocrit 36.1 % (37.0-47.0); Hemoglobin 11.4 g/dL (12.2-16.2); Lymphocytes # 2.3 K/mm3 (0.7-4.5); Lymphocytes % 27.4 % (10-50); Mean Corpuscular HGB Conc 31.7 g/dL (31.8-35.4); Mean Corpuscular Hemoglobin 30.5 pg (27.0-31.2); Mean Corpuscular Volume 96.2 fl (81-99); Mean Platelet Volume 10.2 fl (7.4-10.4); Monocytes # 0.6 K/mm3 (0.1-1.0); Monocytes % 7.3 % (1.7-9.3); Neutrophils % 60.1 % (37.0-80.0); Platelet Count 209 K/mm3 (142-424); Red Blood Count 3.75 M/mm3 (4.20-5.40); Red Cell Distribution Width 14.2 % (11.5-17.5); White Blood Count 8.4 K/mm3 (4.8-10.8)
[2023-10-04 06:50] LABS: Alanine Aminotransferase 27 U/L (12-78); Albumin/Globulin Ratio 0.9 (1.1-1.8); Alkaline Phosphatase 82 U/L (38-126); Anion Gap 6.5 mEq/L (5-15); Aspartate Amino Transferase 31 U/L (14-36); Bilirubin,Total 0.5 mg/dl (0.2-1.3); Blood Urea Nitrogen 21 mg/dl (7-17); Calcium 8.3 mg/dl (8.4-10.2); Carbon Dioxide 28 mmol/L (22.0-30.0); Chloride 109 mmol/L (98-107); Creatinine Clearance Estimated 66 mL/min (50-200); Estimated Glomerular Filt Rate 68 ml/min (>60); GFR (African American) 82 ML/MIN (>60); Globulin 3.3 g/dL (1.3-3.2); Glucose 90 mg/dl (74-100); Magnesium 2.1 mg/dl (1.6-2.3); Potassium 3.5 mmoL/L (3.5-5.1); Sodium 140 mmol/L (136-145); Total Protein,Serum 6.3 g/dl (6.3-8.2)
[2023-10-04] MEDS: ENOXAPARIN 100MG/ML SYRINGE 100 MG SQ ×2 (08:17→20:06)
[2023-10-04] MEDS: SENNOSIDES 8.6MG/DOCUSATE 50MG TABLET 1 TAB PO ×2 (08:17→20:06)
[2023-10-04 12:17] LABS: POC Glucose,Bedside 104 (70-110)
--- NOTE | 2023-10-04 15:01 | EXP.DC.SUM ---
General Admission date:: 10/02/23 Discharge date: 10/04/23 HPI HPI HPI: Patient is a 88-year-old female who is a [facility] presented to hospital due to change in mental status. Patient has past medical history of pulmonary embolism. Patient appears confused and unable to provide reliable history. Reportedly patient was found hypoxic and was being [facility] for possible pneumonia [facility] with azithromycin. Patient had not much improvement and was brought to the hospital for further evaluation. Patient is nonverbal at baseline. Hospital Course Hospital Course Hospital Course: Patient is a 88-year-old female who is a [facility] resident presented to hospital due to change in mental status. Patient has past medical history of pulmonary embolism. Patient appears confused and unable to provide reliable history. Reportedly patient was found hypoxic and was being treated for possible pneumonia at [facility] with azithromycin. Patient [place] has improved during admission. Tolerating IV antibiotics well with improvement in breathing, stable on baseline oxygen. Tolerating anticoagulation for her PE that was identified on CT at admission. Stable for discharge back to nursing facility. Problems addressed as follows: Acute hypoxic respiratory failure satting less than 90% on room air Right lower lobe pneumonia Bilateral pleural effusion Acute pulmonary emboli right lower lobe - Reviewed CT of chest showing right lower lobe PE. Patient was initiated on Lovenox 1 mg/kg twice daily. Will transition to Eliquis to treat her PE at discharge. Has been stable on 3 L oxygen for duration of hospitalization. This is her baseline. Tolerated IV antibiotics initially for pneumonia. Plan to transition to cefdinir to complete 5-day course of antibiotics. Patient found to be positive for RSV. Given her clinical stability, stable to discharge back to [facility] on nasal cannula oxygen to complete oral therapy. Patient tolerating p.o. intake with assistance. Overall showing good improvement. White cell count has normalized to 8.4 by day of discharge. No signs of bleeding. -Recommend repeat CBC, CMP, magnesium in 1 week to monitor kidney function, electrolytes, hemoglobin levels. Acute metabolic encephalopathy -Patient has known history of dementia and nonverbal at baseline. At admission was obtunded. Concern that her confusion was related to her illness. ABG did not show significant acidosis. Ammonia normal. UA unremarkable. Mentation improved to baseline with treatment for her RSV pneumonia. Continue home medications for chronic conditions. Stable for discharge back to [facility] for further management. Spent 30 minutes in discharge counseling with family at bedside, documentation, chart review, and direct care with patient. Exam Data for Last 24 hours Vital signs and Labs for Last 24 Hours: Temp Pulse Resp BP Pulse Ox O2 Del Method O2 Flow Rate 98.9 F 88 18 129/73 95 Nasal Cannula 3 10/04/23 11:30 10/04/23 11:30 10/04/23 11:30 10/04/23 11:30 10/04/23 11:30 10/04/23 11:30 10/04/23 11:30 FiO2 32 10/03/23 18:45 Laboratory Results - last 24 hr 10/03/23 16:35: POC Glucose 108 10/03/23 20:29: POC Glucose 101 10/04/23 04:58: POC Glucose 93 10/04/23 05:37: WBC 8.4, RBC 3.75 L, Hgb 11.4 L, Hct 36.1 L, MCV 96.2, MCH 30.5, MCHC 31.7 L, RDW 14.2, Plt Count 209, MPV 10.2, Neut % (Auto) 60.1, Lymph % (Auto) 27.4, [place] % (Auto) 7.3, Eos % (Auto) 4.8, Baso % (Auto) 0.3, Neut # (Auto) 5.0, Lymph # (Auto) 2.3, [place] # (Auto) 0.6, Eos # (Auto) 0.4, Baso # (Auto) 0.0, Sodium 140, Potassium 3.5, Chloride 109 H, Carbon Dioxide 28, Anion Gap 6.5, BUN 21 H, Creatinine 0.80, Estimated Creat Clear 66, Estimated GFR 68, Est GFR ( Amer) 82, Glucose 90, Calcium 8.3 L, Magnesium 2.1, Total Bilirubin 0.5, AST 31, ALT 27, Alkaline Phosphatase 82, Total Protein 6.3, Albumin 3.0 L, Globulin 3.3 H, Albumin/Globulin Ratio 0.9 L 10/04/23 12:07: POC Glucose 104 I & O for Last 24 hours: Intake & Output 10/01/23 10/02/23 10/03/23 10/04/23 23:59 23:59 23:59 23:59 Intake Total 2532 / 2592 660 / 660 Output Total 375 / 375 800 / 800 800 / 800 Balance -375 / -375 1732 / 1792 -140 / -140 Weight 100.244 kg 100 kg 107.139 kg Constitutional Constitutional: no acute distress, average body habitus and chronically ill appearing *Routine HEENT Exam Head: Present normocephalic Eye: Present EOMI and PERRL ENT: Present mucous membranes moist *Routine Neck Exam Neck: Present supple; Absent lymphadenopathy *Routine Respiratory Exam Respiratory: Present rhonchi and normal respiratory effort; Absent wheezes or crackles *Routine Cardiovascular Exam Cardiovascular: Present RRR *Routine Abdominal Exam Abdominal: Present soft and normoactive bowel sounds; Absent tenderness *Routine Extremities Exam Extremities: Absent cyanosis, clubbing or edema *Routine Skin Exam Skin: Present warm; Absent rash *Routine Neurological Exam Neurological: Present alert and moving all extremities Comments: non-verbal, functional quadraplegic Results Data Completed and Pending Labs on day of discharge: Labs from last 24 hours 10/04/23 10/04/23 10/04/23 12:07 05:37 04:58 WBC 8.4 RBC 3.75 L Hgb 11.4 L Hct 36.1 L MCV 96.2 MCH 30.5 MCHC 31.7 L RDW 14.2 Plt Count 209 MPV 10.2 Neut % (Auto) 60.1 Lymph % (Auto) 27.4 [place] % (Auto) 7.3 Eos % (Auto) 4.8 Baso % (Auto) 0.3 Neut # (Auto) 5.0 Lymph # (Auto) 2.3 [place] # (Auto) 0.6 Eos # (Auto) 0.4 Baso # (Auto) 0.0 Sodium 140 Potassium 3.5 Chloride 109 H Carbon Dioxide 28 Anion Gap 6.5 BUN 21 H Creatinine 0.80 Estimated Creat Clear 66 Estimated GFR 68 Est GFR ( Amer) 82 Glucose 90 POC Glucose 104 93 Calcium 8.3 L Magnesium 2.1 Total Bilirubin 0.5 AST 31 ALT 27 Alkaline Phosphatase 82 Total Protein 6.3 Albumin 3.0 L Globulin 3.3 H Albumin/Globulin Ratio 0.9 L 10/03/23 10/03/23 20:29 16:35 WBC RBC Hgb Hct MCV MCH MCHC RDW Plt Count MPV Neut % (Auto) Lymph % (Auto) [place] % (Auto) Eos % (Auto) Baso % (Auto) Neut # (Auto) Lymph # (Auto) [place] # (Auto) Eos # (Auto) Baso # (Auto) Sodium Potassium Chloride Carbon Dioxide Anion Gap BUN Creatinine Estimated Creat Clear Estimated GFR Est GFR ( Amer) Glucose POC Glucose 101 108 Calcium Magnesium Total Bilirubin AST ALT Alkaline Phosphatase Total Protein Albumin Globulin Albumin/Globulin Ratio DS: Diagnosis Discharge Diagnosis (1) Pneumonia: Status: Acute Code(s): J18.9 - Pneumonia, unspecified organism Qualifiers: Laterality: right Lung location: lower lobe of lung Pneumonia type: due to unspecified organism Qualified Code(s): J18.9 - Pneumonia, unspecified organism (2) Pulmonary embolism: Status: Acute Code(s): I26.99 - Other pulmonary embolism without acute cor pulmonale Qualifiers: Acute cor pulmonale presence: without acute cor pulmonale Chronicity: acute Pulmonary embolism type: unspecified Qualified Code(s): I26.99 - Other pulmonary embolism without acute cor pulmonale (3) Altered mental status: Status: Acute Code(s): R41.82 - Altered mental status, unspecified Qualifiers: Altered mental status type: coma Coma depth: Yue coma 9-12 Coma timing: unspecified coma timing Qualified Code(s): R40.2420 - Uye coma scale score 9-12, unspecified time (4) Lactic acid acidosis: Status: Acute Code(s): E87.20 - Acidosis, unspecified Meds Home Medications and Allergies Home Medications Medication Instructions Recorded Confirmed Type ketoconazole 2 % topical cream 1 applic topical DAILY Rash 07/09/22 10/03/23 History letrozole 2.5 mg tablet 2.5 mg PO DAILY cancer 07/09/22 10/02/23 History acetaminophen 500 mg tablet 1,000 mg PO Q6H PRN FEVER/PAIN 10/02/23 10/02/23 History cholecalciferol (vitamin D3) 125 125 mcg PO WEEKLY VIT D DEFICIENCY 10/02/23 10/02/23 History mcg (5,000 unit) tablet (Vitamin D3) folic acid 1 mg tablet 1 mg PO DAILY Supplement 10/02/23 10/02/23 History ipratropium bromide 0.02 % 0.02 ml inhalation TID SOA 10/02/23 10/03/23 History solution for inhalation ipratropium bromide 21 mcg (0.03 1 spray intranasal BID RHINITIS 10/02/23 10/02/23 History %) nasal spray polyethylene glycol 3350 17 gram 17 g PO DAILY Constipation 10/02/23 10/02/23 History oral powder packet (Miralax) apixaban 5 mg (74 tabs) tablets in 5 mg PO BID #74 tabs 10/04/23 Rx a dose pack (Eliquis DVT-PE Treat 30D Start) cefdinir 300 mg capsule 300 mg PO BID 4 days #8 caps 10/04/23 Rx New Prescriptions to Start Prescriptions: apixaban [Eliquis DVT-PE Treat 30D Start] Eleazar Hurtado James Allergies Allergy/AdvReac Type Severity Reaction Status Date / Time No Known Allergies Allergy Verified 07/09/22 16:27 Discharge Plan Disposition Patient Disposition: er Intermediate Care Fac Condition: Fair Discharge Order Discharge Orders: Discharge Order (Routine); Ordered 10/04/23 Ordered By: Eleazar Hurtado Follow up Plan Prescriptions/Medication Reconciliation: New cefdinir 300 mg capsule 300 mg PO BID 4 Days Qty: 8 0RF Eliquis DVT-PE Treat 30D Start 5 mg (74 tabs) tablets,dose pack 5 mg PO BID Qty: 74 0RF Continued letrozole 2.5 mg tablet 2.5 mg PO DAILY Rx Instructions: Do not crush ketoconazole 2 % cream 1 applic TOPICAL DAILY polyethylene glycol 3350 [Miralax] 17 gram Powder In Packet 17 g PO DAILY acetaminophen 500 mg Tablet 1,000 mg PO Q6H PRN (Reason: FEVER/PAIN) folic acid 1 mg Tablet 1 mg PO DAILY ipratropium bromide 21 mcg (0.03 %) spray,non-aerosol 1 spray INTRANASAL BID Rx Instructions: QAM and QHS ipratropium bromide 0.02 % solution 0.02 ml inhalation TID Rx Instructions: X 10 DAYS STARTING 10/02 cholecalciferol (vitamin D3) [Vitamin D3] 125 mcg (5,000 unit) Tablet 125 mcg PO WEEKLY Rx Instructions: Takes on Fridays Discontinued prednisone 20 mg Tablet 20 mg PO DAILY Rx Instructions: TAKE 5 DAYS STARTING 10/02/23 azithromycin 250 mg tablet 250 mg PO DAILY Rx Instructions: 10/02 to 10/05 Problem Reconciliation Problems Reviewed?: Yes Patient Discharge Instructions ACTIVITY: Bed rest DIET: continue same diet Patient Instructions: DI for Pneumonia -- Adult, DI for Pulmonary Embolism Providers Primary Care Provider: Provider,Referral Admit Provider: Gurpreet Acuña Attending Provider: Gurpreet Acuña
--- NOTE | 2023-10-04 18:27 | PC.NURSE ---
Patient discharged, report called to [facility] and waiting on EMS for transfer to [facility]
[2023-10-04 20:06] LABS: POC Glucose,Bedside 108 (70-110)
--- NOTE | 2023-10-04 20:47 | PC.NURSE ---
Pt left the floor with EMS @2046
[2023-10-06 16:11] LABS: Legionella pneumophila Urinary Negative (Negative)
== END 2023-10-04 20:46 | DRG 193 ==
LOC: ER 12:37 → 2ND 14:51
PROVIDERS: Internal Medicine Adolescent Medicine; Admitting Provider Internal Medicine; Emergency Provider Emergency Medicine; Visit Provider Internal Medicine
DX: J12.1 Respiratory syncytial virus pneumonia (principal); G93.41 Metabolic encephalopathy; J15.9 Unspecified bacterial pneumonia; I26.99 Other pulmonary embolism without acute cor pulmonale; J96.01 Acute respiratory failure with hypoxia; E87.20 Acidosis, unspecified; D64.9 Anemia, unspecified; I48.91 Unspecified atrial fibrillation; F03.90 Unspecified dementia, unspecified severity, without behavioral disturbance, psychotic disturbance, mood disturbance, and anxiety; K21.9 Gastro-esophageal reflux disease without esophagitis; E78.5 Hyperlipidemia, unspecified; I10 Essential (primary) hypertension
CPT/HCPCS: 36415; 51702; 70450; 70496; 70498; 71045; 71275; 74174; 80048; 80053; 81001; 82140; 82803; 82962; 83605; 83690; 83735; 84145; 84484; 85025; 87040; 87081; 87632; 87635; 93005; 94640; 99285; J0696; J3370; Q9967

== ENCOUNTER 2023-12-18 08:45 | Outpatient (CLI) | payer MEDICARE, MEDICAID, SELFPAY ==
[2023-12-18 09:11] LABS: Basophils # 0.1 K/mm3 (0-0.2); Basophils % 0.5 % (0.1-2.0); Eosinophils % 0.2 % (0.1-12.0); Hematocrit 45.5 % (37.0-47.0); Hemoglobin 13.9 g/dL (12.2-16.2); Lymphocytes # 1.6 K/mm3 (0.7-4.5); Lymphocytes % 11.7 % (10-50); Mean Corpuscular HGB Conc 30.5 g/dL (31.8-35.4); Mean Corpuscular Hemoglobin 30.9 pg (27.0-31.2); Mean Corpuscular Volume 101.2 fl (81-99); Mean Platelet Volume 9.6 fl (7.4-10.4); Monocytes # 0.7 K/mm3 (0.1-1.0); Monocytes % 4.9 % (1.7-9.3); Neutrophils % 82.8 % (37.0-80.0); Platelet Count 265 K/mm3 (142-424); Red Blood Count 4.49 M/mm3 (4.20-5.40); Red Cell Distribution Width 14.1 % (11.5-17.5); White Blood Count 13.3 K/mm3 (4.8-10.8)
[2023-12-18 09:58] LABS: Alanine Aminotransferase 31 U/L (12-78); Albumin Level 3.5 g/dl (3.5-5.0); Albumin/Globulin Ratio 1.1 (1.1-1.8); Alkaline Phosphatase 92 U/L (38-126); Amylase 41 U/L (30-110); Aspartate Amino Transferase 37 U/L (14-36); Bilirubin,Total 0.5 mg/dl (0.2-1.3); Blood Urea Nitrogen 25 mg/dl (7-17); Carbon Dioxide 33 mmol/L (22.0-30.0); Chloride 103 mmol/L (98-107); Estimated Glomerular Filt Rate 68 ml/min (>60); GFR (African American) 82 ML/MIN (>60); Globulin 3.1 g/dL (1.3-3.2); Glucose 115 mg/dl (74-100); Lipase 145 U/L (23-300); Sodium 143 mmol/L (136-145); Total Protein,Serum 6.6 g/dl (6.3-8.2)
== END 2023-12-18 23:59 ==
PROVIDERS: PCP Internal Medicine Adolescent Medicine; Visit Provider Internal Medicine Adolescent Medicine
DX: F03.90 Unspecified dementia, unspecified severity, without behavioral disturbance, psychotic disturbance, mood disturbance, and anxiety (principal); J96.21 Acute and chronic respiratory failure with hypoxia; Z79.899 Other long term (current) drug therapy
CPT/HCPCS: 80053; 82150; 83690; 85025

== ENCOUNTER 2023-12-20 14:27 | Outpatient (CLI) | payer MEDICARE, MEDICAID, SELFPAY ==
[2023-12-20 14:55] LABS: Adenovirus F 40/41, stool Not Detected (NotDetected); Astrovirus Not Detected (NotDetected); Campylobacter Not Detected (NotDetected); Clostridium Difficile A/B, PCR Not Detected (NotDetected); Cryptosporidium Not Detected (NotDetected); Cyclospora Cayetanesis Not Detected (NotDetected); Entamoeba histolytica Not Detected (NotDetected); Enteroaggregative E coli Not Detected (NotDetected); Enteropathogenic E coli Not Detected (NotDetected); Enterotoxigenic E coli Not Detected (NotDetected); Giardia lamblia Not Detected (NotDetected); Plesimonas Shigalloides, PCR Not Detected (NotDetected); Rotavirus A Not Detected (NotDetected); Salmonella, PCR Not Detected (NotDetected); Sapovirus Not Detected (NotDetected); Shiga-like toxin E coli Not Detected (NotDetected); Shigella Enterovasive E coli Not Detected (NotDetected); Vibrio Cholerae Not Detected (NotDetected); Vibrio, PCR Not Detected (NotDetected); Yersinia Entercolitica, PCR Not Detected (NotDetected)
[2023-12-25 08:17] LABS: Norovirus Detected (NotDetected)
== END 2023-12-20 23:59 ==
LOC: LAB.DROPOF 14:28
PROVIDERS: Internal Medicine Adolescent Medicine; PCP Nurse Practitioner Family; Visit Provider Nurse Practitioner Family
DX: R19.7 Diarrhea, unspecified (principal); R11.2 Nausea with vomiting, unspecified; A08.11 Acute gastroenteropathy due to Norwalk agent
CPT/HCPCS: 87506